=== PATIENT | male | born 1950 | race Caucasian/White ===

== ENCOUNTER → 2017-11-30 | Outpatient (CLI) | payer OTHER, BC | LOC: BHFA 13:00 | PROVIDERS: ATTEND Internal Medicine Cardiovascular Disease | DX: R06.09 Other forms of dyspnea (principal); I35.0 Nonrheumatic aortic (valve) stenosis ==

== ENCOUNTER 2017-12-27 08:30 | Inpatient (IN) | payer OTHER, BC ==
[2017-12-27] MEDS ORDERED: NS 1,000 ML IV ONE (08:33)
[2017-12-27] MEDS ORDERED: DIAZEPAM 5 MG TAB PO ONE (08:33)
[2017-12-27] MEDS ORDERED: FAMOTIDINE 20 MG TAB PO ONE (08:33)
[2017-12-27] MEDS ORDERED: diphenhydrAMINE 25 MG CAP PO ONE ×2 (08:33→09:08)
[2017-12-27] MEDS ORDERED: ASPIRIN EC 325 MG TAB PO ONE ×2 (08:33→09:09)
[2017-12-27] MEDS ORDERED: fentaNYL 100 MCG/2 ML INJ ONE ×2 (08:57→10:26)
[2017-12-27] MEDS ORDERED: LIDOCAINE 1% 300 MG/30 ML SDV ONE (08:57)
[2017-12-27] MEDS ORDERED: IOPAMIDOL (ISOVUE-370) 150 ML BTL IV ONE (08:57)
[2017-12-27] MEDS ORDERED: MIDAZOLAM 2 MG/2 ML VIAL ONE ×2 (08:57→10:27)
--- NOTE | 2017-12-27 08:59 | CPEKG ---
Heart Rate: 62 RR Interval: 968 P-R Interval: 184 QRSD Interval: 100 QT Interval: 400 QTC Interval: 407 P Patriot: 71 QRS Patriot: 58 T Wave Patriot: -2 EKG Severity - NORMAL ECG - EKG Impression: SINUS RHYTHM Electronically Signed By: Uri Lanier 27-Dec-2017 09:44:28
--- NOTE | 2017-12-27 09:04 | PDHPUP ---
History & Physical Update H&P update statement: This history and physical update is based on an assessment of the patient which was completed after admission or registration (within 24 hours), but prior to the surgery/procedure. H&P update: H&P reviewed & patient examined, no change in patient's condition since H&P completed
--- NOTE | 2017-12-27 09:04 | PDPROPOC ---
Sedation Plan of Care Sedation Plan of Care: vital signs stable, mental status noted, patient educated of risks, benefits, alternatives, patient can tolerate sedation ASA Classification: ASA 2 Planned drugs: fentanyl, midazolam Mallampati Score: Class 2 Mallampati Reference Image: Patient passed 3-3-2 rule?: Yes
[2017-12-27] MEDS ORDERED: FAMOTIDINE 20 MG TAB ONE (09:09)
[2017-12-27] MEDS ORDERED: DIAZEPAM 5 MG TAB ONE (09:09)
[2017-12-27 09:35] LABS: INR 0.99 (0.83-1.16); PROTIME(PATIENT) 13.3 SEC (12.0-15.0)
[2017-12-27 10:24] LABS: PLATELET COUNT 254 10^3/uL (150-400)
[2017-12-27] MEDS ORDERED: ATROPINE SULFATE 1 MG/10 ML SYR ONE (10:52)
[2017-12-27] MEDS ORDERED: OXYCODONE/APAP 5/325 TAB PO PRN (10:53)
[2017-12-27] MEDS ORDERED: ATROPINE SULFATE 1 MG/10 ML SYR IVP PRN (10:53)
[2017-12-27] MEDS ORDERED: ONDANSETRON 4 MG/2 ML VIAL IVP PRN (10:53)
[2017-12-27] MEDS ORDERED: NITROGLYCERIN 0.4 MG BTL SL PRN (10:53)
--- NOTE | 2017-12-27 11:00 | CPIP ---
[f rep st] INVASIVE CARDIAC PROCEDURE DATE OF PROCEDURE: 12/27/2017 PROCEDURE: Coronary angiography. INDICATION: Preoperative evaluation prior to AVR. ACCESS: Patient was prepped and draped in the sterile fashion. 1% lidocaine was used to anesthetize the right inguinal region. A 6-Panamanian introducer sheath was placed selectively in the right common femoral artery via modified Seldinger technique. CORONARY ANGIOGRAPHY: A 6-Panamanian JL4 was advanced to left main coronary artery and images obtained. The left main coronary artery trifurcated into LAD, ramus, and circumflex coronary arteries. The le ft main coronary artery appeared normal. The left anterior descending coronary artery gave rise to o ne prominent diagonal branch as well as one smaller diagonal branch. The left anterior descending co ronary artery had mild luminal irregularities in the mid vessel. There was no stenosis greater than 10%. The diagonal arteries were free of any significant disease. The ramus coronary artery was a sm all to moderate sized vessel. The ramus coronary artery appeared normal. The circumflex coronary ar antonio is a large vessel, but was nondominant. Circumflex coronary artery had a single discrete 25% st enosis in the mid vessel. A 6-Panamanian JR4 was advanced to the right coronary artery and images obtain ed. The right coronary artery is dominant. The right coronary artery appeared normal. LEFT VENTRICULOGRAPHY: Left ventriculography was not performed in an effort to spare contrast across a known problematic valve. COMPLICATIONS: None. CONCLUSIONS: 1. Mild coronary artery disease without flow limitation. 2. Plan is for medical management. /[id number]/MODL
[2017-12-27] MEDS ORDERED: LACTULOSE 20 GM/30 ML UDCUP PO PRN (16:22)
[2017-12-27] MEDS ORDERED: POLYETHYLENE GLYCOL 3350 17 GM PKT PO PRN (16:22)
[2017-12-27] MEDS ORDERED: MAGNESIUM HYDROXIDE 30 ML UDCUP PO PRN (16:22)
[2017-12-27] MEDS ORDERED: BISACODYL 10 MG SUPP PR PRN (16:22)
[2017-12-27] MEDS ORDERED: CHLORHEXIDINE GLUC HIBICLENS 118 ML BTL TP SCH (21:00)
[2017-12-27] MEDS ORDERED: NON-FORMULARY NEW DRUG (Loratadine [Claritin] 10 MG) PO SCH (21:00)
[2017-12-27] MEDS: SENNOSIDES/DOCUSATE SODIUM TAB PO SCH (21:29)
[2017-12-27] MEDS: CETIRIZINE 10 MG TAB PO SCH (21:30)
[2017-12-28] MEDS ORDERED: AMINOCAPROIC ACID 5 GM/20 ML VIAL IV ONE (06:00)
[2017-12-28] MEDS ORDERED: NOREPINEPHRINE BITARTRATE 16 MG in NS 250 ML IV ONE (06:00)
[2017-12-28] MEDS ORDERED: INSULIN REGULAR HUMAN 100 UNIT in NS 100 ML IV ONE (06:00)
[2017-12-28] MEDS ORDERED: CITRATE DEXTROSE SOLN 500 ML BAG MISC ONE ×2 (06:00)
[2017-12-28] MEDS ORDERED: SODIUM BICARBONATE 20 MEQ, LIDOCAINE 1% 10 ML in NORMOSOL-R 1,000 ML MISC ONE (06:00)
[2017-12-28] MEDS ORDERED: PHENYLEPHRINE HCL 50 MG in NS 250 ML IV ONE (06:00)
[2017-12-28] MEDS ORDERED: ceFAZolin 2 GM/SWFI 2 GM/20 ML SYR IVP ONE ×2 (06:00)
[2017-12-28] MEDS ORDERED: niCARdipine/NACL 200 ML IV SCH ×2 (06:00)
[2017-12-28] MEDS ORDERED: MUPIROCIN 2% 22 GM OINT NS ONE (06:00)
[2017-12-28] MEDS ORDERED: MANNITOL 25% 12.5 GM/50 ML VIAL IVP ONE (06:00)
[2017-12-28] MEDS ORDERED: PROTAMINE SULFATE 50 MG/5 ML VIAL IVP ONE ×2 (06:38→10:12)
[2017-12-28] MEDS ORDERED: ALBUMIN 5% 250 ML BOTTLE IV ONE (06:38)
[2017-12-28] MEDS ORDERED: CALCIUM CHLORIDE 1 GM/10 ML INJ ONE (06:39)
[2017-12-28] MEDS ORDERED: MILRINONE/DEXTROSE/100 ML BAG IV ONE (06:39)
[2017-12-28] MEDS ORDERED: NA BICARBONATE 50 MEQ/50 ML VIAL ONE (06:39)
[2017-12-28] MEDS ORDERED: LIDOCAINE 2% 100 MG/5 ML SYR ONE ×2 (06:40→07:11)
[2017-12-28] MEDS ORDERED: CITRATE DEXTROSE SOLN 500 ML BAG ONE (06:40)
[2017-12-28] MEDS ORDERED: HEPARIN 10,000 UNIT/10 ML MDV (1,000 UNIT/ML) ONE (06:40)
[2017-12-28] MEDS ORDERED: DOPamine/DEXTROSE/250 ML BAG IV ONE (06:40)
[2017-12-28] MEDS ORDERED: AMIODARONE HCL 150 MG/3 ML VIAL ONE (06:41)
[2017-12-28] MEDS ORDERED: ADENOSINE 6 MG/2 ML VIAL ONE (06:41)
[2017-12-28] MEDS ORDERED: methylPREDNISolone SOD SUCC 1 GM/8 ML VIAL ONE (06:41)
[2017-12-28] MEDS ORDERED: ceFAZolin 1 GM VIAL ONE (06:41)
[2017-12-28] MEDS ORDERED: niCARdipine/NACL/200 ML BAG IV ONE (06:41)
[2017-12-28] MEDS ORDERED: MAGNESIUM SULFATE 1 GM/2 ML VIAL ONE (06:41)
--- NOTE | 2017-12-28 06:54 | PDHPUP ---
History & Physical Update H&P update statement: This history and physical update is based on an assessment of the patient which was completed after admission or registration (within 24 hours), but prior to the surgery/procedure. H&P update: H&P reviewed & patient examined, changes noted H&P changes: Preop imaging neg for obstructive CAD, enlarged aorta or prohibitive neurologic risk. H/H , Cr 1.0, A1c 6.2%, A+ no antibodies.
[2017-12-28] MEDS ORDERED: MIDAZOLAM 2 MG/2 ML VIAL IVP ONE (06:55)
--- NOTE | 2017-12-28 06:58 | PDANEPAE ---
ANE History of Present Illness bicuspid Ao valve, s/f AVR ANE Past Medical History - Cardiovascular History Hx Hypertension: Yes Hx Arrhythmias: No Hx Chest Pain: No Hx Coronary Artery / Peripheral Vascular Disease: No Hx CHF / Valvular Disease: Yes Hx Palpitations: No Cardiovascular History Comment: htn. bicupsid aortic valve. nonrheumatic aortic valve stenosis. dr cruz is side stitcher - Pulmonary History Hx COPD: No Hx Asthma/Reactive Airway Disease: No Hx Recent Upper Respiratory Infection: No Hx Oxygen in Use at Home: No Hx Sleep Apnea: No Sleep Apnea Screening Result - Last Documented: Positive Pulmonary History Comment: brendan triggers only. slight cough from medications - Neurologic History Hx Cerebrovascular Accident: No Hx Seizures: No Hx Dementia: No - Endocrine History Hx Diabetes: No Endocrine History Comment: pre-diabetic d/t weight - Renal History Hx Renal Disorders: Yes Renal History Comment: frequency - Liver History Hx Hepatic Disorders: No - Neurological & Psychiatric Hx Hx Neurological and Psychiatric Disorders: No - Cancer History Cancer History Comment: hx of skin ca - Congenital Disorder History Hx Congenital Disorders: No - GI History Hx Gastrointestinal Disorders: Yes Gastrointestinal History Comment: hx of egd's and colonoscopies. reflux- on omeprazole - Other Health History Other Health History: wears glasses. bilateral hearing aides - Chronic Pain History Chronic Pain: No (occ right shoulder/ arm pain) - Surgical History Prior Surgeries: at 18 yo luis f and appy. [place]oscop[place] [facility] [place] [place]09 with [facility] at [facility] ANE Review of Systems Review of Systems: - Exercise capacity Exercise capacity: >=4 METS ANE Patient History - Allergies Allergies/Adverse Reactions: codeine Allergy (Mild, Verified 12/28/17 05:11) Vomiting - Home Medications Home medications: home medication list seen and reviewed Home Medications: Aspirin [Aspirin 81mg (*)] 81 mg PO DAILY 12/12/17 [Last Taken Unknown] Atorvastatin Calcium [Lipitor 20 mg (*)] 20 mg PO HS 12/12/17 [Last Taken Unknown] Chlorthalidone [Chlorthalidone 25 mg (*)] 25 mg PO DAILY 12/12/17 [Last Taken Unknown] Cholecalciferol Vit D3 [Vitamin D3 (*)] 1,000 units PO DAILY 12/12/17 [Last Taken Unknown] Fluticasone Nasal [Flonase Nasal [place] (RX)] 1 sprays NASAL DAILY 12/12/17 [ Last Taken Unknown] Lisinopril [Zestril 20 mg (*)] 20 mg PO HS 12/12/17 [Last Taken Unknown] Loratadine [Claritin] 10 mg PO HS 12/12/17 [Last Taken Unknown] Omeprazole 20 mg PO HS 12/12/17 [Last Taken Unknown] - NPO status NPO Status: no food or drink >8 hours NPO Since - Liquids (Date): 12/28/17 NPO Since - Liquids (Time): 00:00 NPO Since - Solids (Date): 12/28/17 NPO Since - Solids (Time): 00:00 - Anes Hx Anes Hx: no prior problems - Smoking Hx Smoking Status: Former smoker - Alcohol Use Alcohol Use: Rarely - Family Anes Hx Family Anes Hx: none Family Hx Anesthesia Complications: none ANE Labs/Vital Signs - Labs Result Diagrams: 12/27/17 09:10 12/27/17 09:10 - Vital Signs Blood Pressure: 149/63 Heart Rate: 68 Respiratory Rate: 16 O2 Sat (%): 94 Height: 178 cm Weight: 99.6 kg ANE Physical Exam - Airway Neck exam: FROM Mallampati Score: Class 2 Mouth exam: normal dental/mouth exam - Pulmonary Pulmonary: no respiratory distress - Cardiovascular Cardiovascular: regular rate and rhythym - ASA Status ASA Status: II ANE Anesthesia Plan Anesthesia Plan: general endotracheal anesthesia Lines/Monitors: arterial line, central line
[2017-12-28] MEDS ORDERED: DEXMEDETOMIDINE HCL 400 MCG in NS 100 ML IV SCH (07:00)
[2017-12-28] MEDS ORDERED: MIDAZOLAM 2 MG/2 ML VIAL ONE ×3 (07:07→07:09)
[2017-12-28] MEDS ORDERED: REMIFENTANIL HCL 1 MG VIAL ONE (07:09)
[2017-12-28] MEDS ORDERED: DEXAMETHASONE 4 MG/ML VIAL ONE ×2 (07:09→07:10)
[2017-12-28] MEDS ORDERED: fentaNYL 250 MCG/5 ML INJ ONE (07:09)
[2017-12-28] MEDS ORDERED: PROPOFOL/EMULSION 500 MG/50 ML BOTTLE IV ONE (07:09)
[2017-12-28] MEDS ORDERED: PHENYLEPHRINE HCL 100 MCG/ML SYR ONE (07:10)
[2017-12-28] MEDS ORDERED: epHEDrine SULFATE 10 MG/ML SYR ONE (07:10)
[2017-12-28] MEDS ORDERED: ROCURONIUM 100 MG/10 ML VIAL ONE (07:10)
[2017-12-28] MEDS ORDERED: PROPOFOL 200 MG/20 ML VIAL ONE (09:31)
[2017-12-28] MEDS ORDERED: MAGNESIUM SULF 2 GM/WATER 50 ML BAG IV ONE (09:59)
[2017-12-28] MEDS ORDERED: fentaNYL 100 MCG/2 ML INJ ONE ×2 (10:31→10:59)
[2017-12-28] MEDS ORDERED: POTASSIUM Cl (KCl) 50 ML IV PRN (11:14)
[2017-12-28] MEDS ORDERED: PANTOPRAZOLE SODIUM 40 MG VIAL IVP ONE ×2 (11:14→14:15)
[2017-12-28] MEDS ORDERED: MAGNESIUM SULF 2 GM/WATER 50 ML IV ONE (11:14)
[2017-12-28] MEDS ORDERED: ALBUMIN 5% 250 ML IV PRN (11:14)
[2017-12-28] MEDS ORDERED: ONDANSETRON DISINTEGRATING 4 MG TAB PO PRN (11:14)
[2017-12-28] MEDS ORDERED: CEPACOL LOZENGE PO PRN (11:14)
[2017-12-28] MEDS ORDERED: ACETAMINOPHEN 650 MG SUPP PR PRN (11:14)
[2017-12-28] MEDS ORDERED: SODIUM CL NASAL 45 ML BTL EACHNARE PRN (11:14)
[2017-12-28] MEDS ORDERED: METOCLOPRAMIDE 10 MG/2 ML VIAL IVP PRN (11:14)
[2017-12-28] MEDS ORDERED: fentaNYL 100 MCG/2 ML INJ IVP PRN (11:14)
[2017-12-28] MEDS ORDERED: D50W 25 GM/50 ML SYR IVP PRN (11:14)
[2017-12-28] MEDS ORDERED: MEPERIDINE 25 MG/0.5 ML AMP IVP PRN (11:14)
[2017-12-28] MEDS ORDERED: ACETAMINOPHEN 325 MG TAB PO PRN (11:14)
[2017-12-28] MEDS ORDERED: NS 1,000 ML IV SCH (11:15)
[2017-12-28] MEDS ORDERED: ONDANSETRON 4 MG/2 ML VIAL IVP PRN (11:23)
[2017-12-28] MEDS ORDERED: INSULIN REGULAR HUMAN 100 UNIT in NS 100 ML IV SCH (11:30)
--- NOTE | 2017-12-28 12:27 | GOP ---
[f rep st] OPERATIVE REPORT DATE OF OPERATION: 12/28/2017 SURGEON: Jose Valles DO QUALITY SYSTEMS TECHNICIAN: Casey. ANESTHESIOLOGIST: Reese. PREOPERATIVE DIAGNOSIS: Aortic stenosis. POSTOPERATIVE DIAGNOSIS: Aortic stenosis. PROCEDURE PERFORMED: Minimally invasive aortic valve replacement with a #23 Magna bioprosthesis. FINDINGS: Patient was noted to have a bicuspid aortic valve with critical aortic stenosis, symptomat ic. DESCRIPTION OF PROCEDURE: He was consented for surgery, brought to the operating room intubated, and monitoring lines were placed. He was prepped and draped in sterile classical manner. Partial paulson otomy was performed at the 3rd intercostal space. It was T'd off. A retractor was placed. He was h eparinized with cannula in the aorta and right atrium. Cardiopulmonary bypass was begun. Cardiopleg ic arrest was obtained with antegrade cardioplegia and intermittent direct coronary perfusion. A heavily calcified bileaflet valve was excised. The anulus was debrided. The LV chamber was irriga brandi. CO2 was infused. A PA vent was placed. The patient was sized for a 23 magna bioprosthesis, wh ich was sutured in place with interrupted 2-0 Tycron pledgeted mattress sutures utilizing Cor-Knots. Aortotomy was closed in a 2-layer fashion. Patient was placed in Trendelenburg. The cross-clamp wa s removed with suction on the ascending aortic vent and PA vent. Two pacing wires were placed on the LV and brought through a separate stab wound incision. He was then easily weaned from bypass. The heparin was reversed with protamine. The cannulae were removed and oversewn. One Kb drain was pl aced in the pericardium. The chest was reapproximated. The skin was closed. Patient was returned t o the recovery in stable condition. /[id number]/MODL
[2017-12-28] MEDS: KETOROLAC 15 MG/1 ML SDV IVP SCH ×2 (12:49→17:54)
[2017-12-28] MEDS: ceFAZolin 2 GM/SWFI 2 GM/20 ML SYR IVP SCH ×2 (13:26→21:08)
--- NOTE | 2017-12-28 13:32 | GCON ---
[f rep st] CONSULTATION TOUCH UP CARVER CONSULTATION REASON FOR ADMISSION: He is examined postoperatively after receiving aortic valve replacement. HISTORY OF PRESENT ILLNESS: Mr. Meneses is a 67-year-old white male with a past medical history of bicuspid aortic valve, hypertension, hypercholesterolemia, and gastroesophageal reflux disease. He i s, again, examined postoperatively after receiving aortic valve replacement. Discussed with the amanda ent. Overall he states he feels somewhat better. His pain is reasonably well tolerated, though he i s somewhat drowsy. He denies any cough or production of sputum. There is no fever or night sweats. REVIEW OF SYSTEMS: A 10-point review of systems was performed and is negative except for what is lis brandi in HPI. PAST MEDICAL HISTORY: Significant for hypertension, bicuspid aortic valve. Dyspnea upon exertion. Hypertension, hypercholesterolemia, gastroesophageal reflux disease. PAST SURGICAL HISTORY: He had shoulder surgery, gallbladder, and appendix. ALLERGIES: No known allergies to medications. SOCIAL HISTORY: Previous heavy smoker, quit at age 33. Infrequent alcohol use. He is , has excellent family support. FAMILY HISTORY: Noncontributory. PHYSICAL EXAM: VITAL SIGNS: Blood pressure is 149/63, pulse 68, respirations 16, temperature 36.4, oxygen saturation 94% on room air. GENERAL: He is a well-developed, well-nourished, 67-year-old whi te male who is resting comfortably, with mild pain. HEENT: Eyes PERRLA, EOMI. Throat shows no eryt rufino or tonsillar hypertrophy. NECK: Supple. There is no cervical adenopathy. HEART: Regular rat e and rhythm, without murmurs, rubs, or gallops. LUNGS: Diminished breath sounds, but no wheeze. ABDOMEN: Soft, nontender. Bowel sounds are present in all 4 quadrants. EXTREMITIES: No clubbing, cyanosis, or edema. LABORATORY DATA: White count 7.7, hemoglobin 15, hematocrit 45, platelet count 254. Sodium 145, pot assium 3.9, chloride 102, CO2 28, BUN 17, creatinine 1, glucose is 101. CT scan of the chest reveals dense aortic valvular calcification, coronary arthrosclerosis, and benign pulmonary nodules. IMPRESSION: 1. Severe aortic stenosis. 2. Status post aortic valve replacement. 3. Hypertension. 4. Dyspnea upon exertion. 5. Gastroesophageal reflux disease. RECOMMENDATIONS: 1. Adequate pain control. 2. DVT and PE prophylaxis. Holding anticoagulation for now. 3. Stress ulcer prophylaxis. 4. Aggressive blood sugar control. 5. Early ambulation. 6. PT and OT. /[id number]/MODL
[2017-12-28] MEDS ORDERED: ceFAZolin 2 GM/DEXTROSE 100 ML IV SCH (14:00)
[2017-12-28] MEDS ORDERED: PANTOPRAZOLE SODIUM 40 MG VIAL ONE (14:08)
--- NOTE | 2017-12-28 16:27 | PDMN ---
Medical Necessity Medical necessity: IP surgery per [facility] cpt [id number] AVR
--- NOTE | 2017-12-28 18:51 | POSTANESTH ---
Post Anesthetic Evaluation Cardiovascular Status: Normal, Stable Respiratory Status: Normal, Stable Level of Consciousness/Mental Status: Can Participate in Eval Pain Control: Adequate, Prn Tx Ordered Nausea/Vomiting Control: Adequate, Prn Tx Ordered Complications Possibly Related to Anesthesia: None Noted
[2017-12-28] MEDS: CETIRIZINE 10 MG TAB PO SCH (19:45)
[2017-12-28] MEDS: MUPIROCIN 2% 22 GM OINT NS SCH (19:46)
[2017-12-28] MEDS: HYDROCODONE/APAP 5/325 TAB PO PRN (22:18)
[2017-12-28] MEDS: SENNOSIDES/DOCUSATE SODIUM TAB PO SCH (23:58)
[2017-12-29] MEDS: KETOROLAC 15 MG/1 ML SDV IVP SCH ×4 (00:08→17:17)
[2017-12-29] MEDS: ceFAZolin 2 GM/SWFI 2 GM/20 ML SYR IVP SCH ×3 (05:52→22:06)
[2017-12-29] MEDS: HEPARIN 5,000 UNIT/0.5 ML SYR SC SCH ×3 (05:53→20:21)
[2017-12-29 06:01] LABS: PLATELET COUNT 109 10^3/uL (150-400)
--- NOTE | 2017-12-29 06:31 | SOAPPROG ---
SOAP Progress Note Assessment/Plan: Assessment: POD#1 MICS AVR #23 Magna bioprosthesis via inverse T upper sternotomy BAV with sx - s/p tissue AVR via minimally invasive approach. Extubated in the OR. Stable early postop hemodynamics without vasoactive support, tachyarrhythmias or backup pacing. Adequately diuresing modest volume overload. Antithrombotic prophylaxis with ASA alone pending stability of rhythm. AF prophylaxis with BB as tolerated. Acute expected blood loss anemia - Stable. No transfusions required. VTE prophylaxis with SQ hep. Prediabetes - Preop A1c of 6.2%. Postop hyperglycemia managed with insulin gtt. Transition to SSI in progress. Plan: Routine POD#1 orders re wires, lines, drains, orals and mobility. Tx to PCU. 12/29/17 06:28 Subjective: Feels great. Satisfactory analgesia. Walked one lap earlier this am with relative ease. Good appetite. No concerns. Objective: Vital Signs Temp Pulse Resp BP Pulse Ox 36.7 C 58 L 20 113/54 L 97 12/28/17 19:20 12/29/17 05:00 12/29/17 05:00 12/29/17 05:00 12/29/17 05:00 Laboratory Results 12/29/17 05:40 12/28/17 12/29/17 12/30/17 05:59 05:59 05:59 Intake Total 950 1900 Output Total 1400 Balance 950 500 PT 13.3 SEC (12.0-15.0) 12/27/17 09:10 INR 0.99 (0.83-1.16) 12/27/17 09:10 Physical Exam - Physical Exam General Appearance: alert, no apparent distress Respiratory: lungs clear (grossly), other (jill to bulb suction) Cardiac/Chest: regular rate, rhythm, other (Sternum grossly stable. Sternotomy CDI. V wires intact.) Abdomen: non-tender, soft Skin: warm/dry Extremities: swelling (trace) ICD10 Worksheet Patient Problems: Problems Problem Status Onset Carotid atherosclerosis Acute Coronary atherosclerosis Acute S/P aortic valve replacement with bioprosthetic valve Acute ~12/28/17 Calcific aortic stenosis of bicuspid valve Chronic Prediabetes Chronic
[2017-12-29] MEDS ORDERED: traMADol 50 MG TAB PO PRN (08:03)
[2017-12-29] MEDS: PANTOPRAZOLE SODIUM 40 MG TAB PO SCH (09:16)
[2017-12-29] MEDS: SODIUM CL NASAL 45 ML BTL EACHNARE SCH ×2 (09:16→20:34)
[2017-12-29] MEDS: ASPIRIN 81 MG CHEWABLE TAB PO SCH (09:16)
[2017-12-29] MEDS: MUPIROCIN 2% 22 GM OINT NS SCH ×2 (09:17→20:33)
[2017-12-29] MEDS: FLUTICASONE NASAL 120 SPRAYS/16 GM MDI EACHNARE SCH (09:33)
--- NOTE | 2017-12-29 09:46 | PDINTPN ---
Cattle Examiner Progress Note Assessment/Plan: Assessment: * Status post aortic valve replacement * Respiratory-stable on minimal oxygen. * Pain-well controlled * Pre diabetes-blood sugar stable Plan: Continue present care PT/OT Ambulation Continue pain control Subjective: Sitting up in chair. Comfortable. Pain is well tolerated. Objective: Vital Signs Temp Pulse Resp BP Pulse Ox 36.9 C 71 22 H 100/57 L 96 12/29/17 08:00 12/29/17 08:00 12/29/17 08:00 12/29/17 08:00 12/29/17 08:00 Laboratory Results 12/29/17 05:40 12/29/17 05:40 12/28/17 12/29/17 12/30/17 05:59 05:59 05:59 Intake Total 950 2200 240 Output Total 1400 Balance 950 800 240 PT 13.3 SEC (12.0-15.0) 12/27/17 09:10 INR 0.99 (0.83-1.16) 12/27/17 09:10 - Time Spent With Patient Time Spent With Patient: 25 min of time spent with patient, over 1/2 involved with coordination of care or counseling Physical Exam - Physical Exam General Appearance: WD/WN, alert, no apparent distress EENT: PERRL/EOMI, normal ENT inspection Neck: non-tender, full range of motion, supple, normal inspection Respiratory: chest non-tender, lungs clear, normal breath sounds Cardiac/Chest: normal peripheral pulses, regular rate, rhythm Abdomen: normal bowel sounds, non-tender, soft Male Genitalia: deferred Rectal: deferred Skin: normal color, warm/dry Extremities: normal range of motion, non-tender, normal inspection, normal capillary refill Neuro/Psych: no motor/sensory deficits, alert, normal mood/affect, oriented x 3 ICD10 Worksheet Patient Problems: Problems Problem Status Onset Carotid atherosclerosis Acute Coronary atherosclerosis Acute S/P aortic valve replacement with bioprosthetic valve Acute ~12/28/17 Calcific aortic stenosis of bicuspid valve Chronic Prediabetes Chronic
[2017-12-29] MEDS ORDERED: INSULIN LISPRO 100 UNIT/ML SC SCH (12:00)
[2017-12-29] MEDS: CETIRIZINE 10 MG TAB PO SCH (20:22)
[2017-12-29] MEDS: SENNOSIDES/DOCUSATE SODIUM TAB PO SCH (20:22)
--- NOTE | 2017-12-30 00:59 | CPEKG ---
Heart Rate: 74 RR Interval: 811 QRSD Interval: 100 QT Interval: 364 QTC Interval: 404 P [place]: 55 QRS [place]: 50 T Wave [place]: -13 EKG Severity - ABNORMAL ECG - EKG Impression: AV DISSOCIATION EKG Impression: VENTRICULAR BIGEMINY EKG Impression: ABERRANT COMPLEX, POSSIBLY SUPRAVENTRICULAR EKG Impression: BORDERLINE T ABNORMALITIES, INFERIOR LEADS Electronically Signed By: Uri Lanier 30-Dec-2017 13:06:41
[2017-12-30] MEDS: HYDROCODONE/APAP 5/325 TAB PO PRN (04:24)
[2017-12-30] MEDS: HEPARIN 5,000 UNIT/0.5 ML SYR SC SCH ×3 (06:18→21:57)
--- NOTE | 2017-12-30 06:56 | SOAPPROG ---
SOAP Progress Note Assessment/Plan: Assessment: POD#2 MICS AVR #23 Magna bioprosthesis via inverse T upper sternotomy BAV with sx - s/p tissue AVR via minimally invasive approach. Extubated in the OR. Stable early postop hemodynamics without vasoactive support or tachyarrhythmias. Chest tube and TCPW out. Adequately diuresing modest volume overload. Antithrombotic prophylaxis with ASA alone pending stability of rhythm. AF prophylaxis with BB as tolerated. Postoperative high degree AVB - Development of CHB early this am. Well tolerated. EP cards consulted. Possible PPM later today. Acute expected blood loss anemia - Stable. No transfusions required. VTE prophylaxis with SQ hep. Prediabetes - Preop A1c of 6.2%. Postop hyperglycemia managed with insulin gtt. Transition to SSI in progress. Plan: NPO for possible PPM. 12/30/17 06:54 Subjective: Doing ok. Inc incisional discomfort off Toradol. Unaware of rhythm. No dizziness. Objective: Vital Signs Temp Pulse Resp BP Pulse Ox 37.7 C 72 16 108/65 94 12/30/17 04:00 12/30/17 04:00 12/30/17 04:00 12/30/17 04:00 12/30/17 04:00 Laboratory Results 12/29/17 05:40 12/30/17 03:20 12/29/17 12/30/17 12/31/17 05:59 05:59 05:59 Intake Total 2200 1160 Output Total 1400 475 Balance 800 685 PT 13.3 SEC (12.0-15.0) 12/27/17 09:10 INR 0.99 (0.83-1.16) 12/27/17 09:10 Onset of CHB early this am. No apparent sx. No hypotension. No electrolyte imbalance. Almost off O2. Positive fluid balance. +5 kg overall. - Pending Discharge Pending Discharge Within 48 Hours: Yes Pending Discharge Date: 01/01/18 Pending Discharge Time: 11:00 Physical Exam - Physical Exam General Appearance: alert, no apparent distress Respiratory: lungs clear (grossly) Cardiac/Chest: other (Irreg HR. Sternum grossly stable. Sternotomy CDI.) Abdomen: non-tender, soft Skin: warm/dry Extremities: swelling (1+ dependent) ICD10 Worksheet Patient Problems: Problems Problem Status Onset Carotid atherosclerosis Acute Coronary atherosclerosis Acute Postoperative complete heart block Acute S/P aortic valve replacement with bioprosthetic valve Acute ~12/28/17 Calcific aortic stenosis of bicuspid valve Chronic Prediabetes Chronic
[2017-12-30] MEDS: PANTOPRAZOLE SODIUM 40 MG TAB PO SCH (08:08)
[2017-12-30] MEDS: ASPIRIN 81 MG CHEWABLE TAB PO SCH (08:09)
[2017-12-30] MEDS: SENNOSIDES/DOCUSATE SODIUM TAB PO SCH ×2 (08:09→21:56)
[2017-12-30] MEDS: SODIUM CL NASAL 45 ML BTL EACHNARE SCH (08:10)
[2017-12-30] MEDS: MUPIROCIN 2% 22 GM OINT NS SCH (08:10)
[2017-12-30] MEDS: FLUTICASONE NASAL 120 SPRAYS/16 GM MDI EACHNARE SCH (08:10)
[2017-12-30] MEDS ORDERED: FUROSEMIDE 20 MG/2 ML VIAL IVP ONE (09:00)
[2017-12-30] MEDS ORDERED: POTASSIUM CL 10 MEQ TAB PO ONE (09:00)
[2017-12-30] MEDS: IBUPROFEN 600 MG TAB PO PRN (13:13)
--- NOTE | 2017-12-30 15:53 | ASMTCASEMG ---
Living Arrangements What is your living Answers: With Spouse arrangement? Who do you live with? Type Of Residence What kind of residence do Answers: House you live in? Discharge Plan Comments Coordination Status Comments Notes: Pt is a 67 y/o man admitted for heart surgery performed by Dr. Valles. Pt will be NPO for a possible PPM. Therapies have been working with pt and has cleared pt to be independent. CM available for changes. Plan: Independent Date Signed: 12/30/2017 03:52 PM Electronically Signed By:JOSUE Bell
[2017-12-30] MEDS: CETIRIZINE 10 MG TAB PO SCH (21:57)
[2017-12-31] MEDS: HEPARIN 5,000 UNIT/0.5 ML SYR SC SCH (06:26)
--- NOTE | 2017-12-31 07:29 | SOAPPROG ---
SOAP Progress Note Assessment/Plan: POD#3: MICS AVR #23 Magna bioprosthesis via inverse T upper sternotomy BAV with sx - s/p tissue AVR via minimally invasive approach. Extubated in the OR. Antithrombotic prophylaxis with ASA alone pending stability of rhythm. AF prophylaxis with BB as tolerated. Postoperative high degree AVB - Acute expected blood loss anemia - Stable. No transfusions required. VTE prophylaxis with SQ hep. Prediabetes - Preop A1c of 6.2%. Postop hyperglycemia managed with insulin gtt. Transition to SSI in progress. Subjective: No complaints. Happy to be discharged today. Objective: Vital Signs Temp Pulse Resp BP Pulse Ox 37.3 C 73 20 122/70 H 93 12/31/17 04:00 12/31/17 07:11 12/31/17 07:11 12/31/17 04:00 12/31/17 07:11 Laboratory Results 12/29/17 05:40 12/30/17 03:20 12/30/17 12/31/17 01/01/18 05:59 05:59 05:59 Intake Total 1160 1050 Output Total 475 850 Balance 685 200 PT 13.3 SEC (12.0-15.0) 12/27/17 09:10 INR 0.99 (0.83-1.16) 12/27/17 09:10 Physical Exam - Physical Exam General Appearance: WD/WN, alert, no apparent distress EENT: No scleral icterus (R), No scleral icterus (L) Neck: normal inspection Respiratory: No normal breath sounds Cardiac/Chest: regular rate, rhythm Abdomen: non-tender, soft, No distended Skin: normal color, warm/dry Extremities: No pedal edema Neuro/Psych: no motor/sensory deficits, alert, normal mood/affect, oriented x 3 ICD10 Worksheet Patient Problems: Problems Problem Status Onset Carotid atherosclerosis Acute Coronary atherosclerosis Acute Postoperative complete heart block Acute S/P aortic valve replacement with bioprosthetic valve Acute ~12/28/17 Calcific aortic stenosis of bicuspid valve Chronic Prediabetes Chronic
[2017-12-31 07:50] VITALS: BP 136/80
[2017-12-31] MEDS ORDERED: CHOLECALCIFEROL VIT D3 1,000 UNITS TAB PO SCH (09:00)
[2017-12-31] MEDS: PANTOPRAZOLE SODIUM 40 MG TAB PO SCH (09:01)
[2017-12-31] MEDS: ASPIRIN 81 MG CHEWABLE TAB PO SCH (09:01)
[2017-12-31] MEDS: IBUPROFEN 600 MG TAB PO PRN ×2 (09:05→14:22)
[2017-12-31] MEDS: SENNOSIDES/DOCUSATE SODIUM TAB PO SCH (09:05)
[2017-12-31] MEDS: FLUTICASONE NASAL 120 SPRAYS/16 GM MDI EACHNARE SCH (09:05)
--- NOTE | 2017-12-31 16:26 | ASMTLACE ---
LACE Length of stay for Answers: 4-6 days current admission Acuity / Level of Answers: Yes Care: Did the patient have an inpatient admission? Comorbidities - select Answers: Congestive heart failure all that apply Other Notes: HTN # of Emergency department Answers: 0 visits in the last 6 months Score: 10 Date Signed: 12/31/2017 02:11 PM Electronically Signed By:Jen Brandon RN
--- NOTE | 2017-12-31 17:15 | PDDCSUM ---
Discharge Summary Discharge Summary: ADMISSION DATE: 12/27/17 DISCHARGE DATE: 12/31/17 ADMISSION DIAGNOSES: 1. Severe aortic stenosis 2. Bicuspid aortic valve DISCHARGE DIAGNOSES: 1. Severe aortic stenosis 2. Bicuspid aortic valve 3. Acute blood loss anemia 4. Postoperative AV block PROCEDURES 12/28/17, Jose Valles: 1. MICS AVR with #23 Magna bioprosthesis HOSPITAL COURSE BY PROBLEM LIST 1. Severe with bicuspid AV - stable s/p AVR with bioprosthesis. 2. Acute blood loss anemia - stable without the need for transfusions. 3. Postoperative AV block - resolved. Beta-vel avoided. CONDITION Good DISPOSITION Home, self-care ACTIVITY Pt was instructed on sternal precautions, activity limitations, and which problems to call [facility] with. Please see Discharge Plan in chart for specifics. DISCHARGE MEDICATIONS Continue: Aspirin [Aspirin 81mg (*)] 81 mg PO DAILY Atorvastatin Calcium [Lipitor 20 mg (*)] 20 mg PO HS Chlorthalidone [Chlorthalidone 25 mg (*)] 25 mg PO DAILY Cholecalciferol Vit D3 [Vitamin D3 (*)] 1,000 units PO DAILY Fluticasone Nasal [Flonase Nasal [place]] 1 sprays NASAL DAILY Loratadine [Claritin] 10 mg PO HS Omeprazole 20 mg PO HS New: Acetaminophen [Tylenol 325mg (*)] 325 - 650 mg PO Q4HRS PRN Hydrocodone/APAP 5/325 [[place] 5/325 (*)] 1 - 2 tab PO Q4HRS PRN Ibuprofen [Motrin (*)] 600 mg PO QIDMEAL PRN Stop: Lisinopril PENDING STUDIES/LABS 1. CXR prior to surgical follow-up FOLLOW-UP 1. Jose Valles, 01/10/18, 9:15 AM
[2017-12-31] MEDS ORDERED: ATORVASTATIN CALCIUM 20 MG TAB PO SCH (21:00)
--- NOTE | 2018-01-04 13:41 | ASDISCHSUM ---
Discharge Information Plan Status:Home with No Needs Medically Cleared to Leave:12/31/2017 Discharge Date:12/31/2017 CM D/C Disposition:Home, Routine, Self-Care ADT D/C Disposition:Home, Routine, Self-Care Projected Discharge Date:12/31/2017 Transportation at D/C:Family Discharge Delay Reason: Follow-Up Date:12/31/2017 Discharge Slot: Final Diagnosis: Placement Information Patient Contact Information Contact Name:GARRY Relationship: Address:[address] City:[place] Alternate Phone: [facility]/Zip Code:[place] [address] Email: Financial Information Financial Class:Medicare Primary Plan Desc:MEDICARE INPATIENT Primary Plan Number:[id number] Secondary Plan Desc:911 View [facility] Secondary Plan Number:[id number] Assessment Information LACE LACE Length of stay for Answers: 4-6 days current admission Acuity / Level of Answers: Yes Care: Did the patient have an inpatient admission? Comorbidities - select Answers: Congestive heart failure all that apply Other Notes: HTN # of Emergency department Answers: 0 visits in the last 6 months Score: 10 Date Signed: 12/31/2017 02:11 PM Electronically Signed By:Jen Brandon RN [facility] Initial CM Assessment Living Arrangements What is your living Answers: With Spouse arrangement? Who do you live with? Type Of Residence What kind of residence do Answers: House you live in? Discharge Plan Comments Coordination Status Comments Notes: Pt is a 67 y/o man admitted for heart surgery performed by Dr. Valles. Pt will be NPO for a possible PPM. Therapies have been working with pt and has cleared pt to be independent. CM available for changes. Plan: Independent Date Signed: 12/30/2017 03:52 PM Electronically Signed By:JOSUE Bell Case Management Discharge Plan Note Case Management Discharge Discharge Order Complete? Answers: Yes Patient to Obtain Answers: via Family Medications Transportation Arranged Answers: Family/Friends Family Notified Answers: Yes Notes: in room Discharge Comments Notes: 12/31/2017 Case Management Note Pt to d/c independent with family support. His will transport home. IM signed. No further case management needs identified. Date Signed: 12/31/2017 02:13 PM Electronically Signed By:Jen Brandon RN Intervention Information Intervention Type:*IM-Signed Date of Service:12/31/2017 02:10 PM Patient Type:Inpatient Staff Member:SWETHA Brandon, Jen Hours: Discipline: Severity: Comment:
== END 2017-12-31 14:52 | disposition home or self-care (01) | DRG 217 ==
LOC: FCATH 08:30 → F2W 10:53 → F2N 12-28 07:15 → F2W 12-29 10:00
PROVIDERS: ADMIT Thoracic Surgery (Cardiothoracic Vascular Surgery); ATTEND Thoracic Surgery (Cardiothoracic Vascular Surgery)
PROC: B2111ZZ Fluoroscopy of Multiple Coronary Arteries using Low Osmolar Contrast (ICD-10-PCS; 2017-12-27)
PROC: B2151ZZ Fluoroscopy of Left Heart using Low Osmolar Contrast (ICD-10-PCS; 2017-12-27)
PROC: 02RF08Z Replacement of Aortic Valve with Zooplastic Tissue, Open Approach (ICD-10-PCS; principal; 2017-12-28 07:15)
PROC: 5A1221Z Performance of Cardiac Output, Continuous (ICD-10-PCS; principal; 2017-12-28 07:15)
DX: Q23.1 Congenital insufficiency of aortic valve (principal); D62 Acute posthemorrhagic anemia; I44.39 Other atrioventricular block; E66.9 Obesity, unspecified; I10 Essential (primary) hypertension; E78.00 Pure hypercholesterolemia, unspecified; K21.9 Gastro-esophageal reflux disease without esophagitis; R73.03 Prediabetes
CPT/HCPCS: 82947-QW; 97162-GP; 97166-GO; 97530-GO; 97535-GO; G8978-GP-CH; G8979-GP-CH; G8980-GP-CH; G8987-GO-CI; G8988-GO-CH; G8989-GO-CH; J0153; J0282; J0461; J0690; J1100; J1265; J1644; J1815; J1885; J1940; J2001; J2150; J2250; J2260; J2370; J2704; J2720; J2930; J3010; J3475; J3480; J7060; P9041; Q9967

== ENCOUNTER → 2018-01-09 | Outpatient (CLI) | payer OTHER, BC | LOC: FIMAGING 10:20 | PROVIDERS: ATTEND Thoracic Surgery (Cardiothoracic Vascular Surgery) | DX: Z09 Encounter for follow-up examination after completed treatment for conditions other than malignant neoplasm (principal); Z95.2 Presence of prosthetic heart valve ==

== ENCOUNTER 2018-02-14 07:53 | Inpatient (IN) | payer OTHER, BC ==
[2018-02-14] MEDS ORDERED: LIDOCAINE 1% 5 ML SDV ID PRN (08:23)
[2018-02-14] MEDS ORDERED: ceFAZolin 2 GM/DEXTROSE 100 ML IV ONE (08:23)
[2018-02-14] MEDS ORDERED: LR 1,000 ML IV ONE (08:23)
--- NOTE | 2018-02-14 09:05 | PDGENHP ---
History and Physical - Chief Complaint sternal wound drainage/erythema/pain - History of Present Illness 67M with h/o AVR with #23 Magna bioprosthesis on 12/28/17 with 10 day c/o sternal wound swelling, erythema, and pain. Pt with onset of purulent drainage and seen at [facility] on 01/10 where superior pole of wound was opened and packed. Pt was started on Keflex and instructed to contact us if symptoms worsen. Pt here today for sternal wound debridement and hardware removal as symptoms did not resolve and he continues to c/o chest pain lateral to his sternotomy as well as purulent sternal wound drainage and erythema. Pt denies weakness, fevers, chills, nausea, or vomiting, cough, SOB, abd pain, urinary issues, LE edema. History Information - Allergies/Home Medication List Allergies/Adverse Reactions: codeine Allergy (Mild, Verified 12/28/17 05:11) Vomiting Home Medications: Aspirin [Aspirin 81mg (*)] 81 mg PO DAILY 12/12/17 [Last Taken 02/13/18] Atorvastatin Calcium [Lipitor 20 mg (*)] 20 mg PO HS 12/12/17 [Last Taken ] Chlorthalidone [Chlorthalidone 25 mg (*)] 25 mg PO DAILY 12/12/17 [Last Taken 05:00] Cholecalciferol Vit D3 [Vitamin D3 (*)] 1,000 units PO DAILY 12/12/17 [Last Taken 02/13/18] Fluticasone Nasal [Flonase Nasal [place]] 1 sprays NASAL DAILY 12/12/17 [Last Taken 02/12/18] Loratadine [Claritin] 10 mg PO HS 12/12/17 [Last Taken 02/13/18] Omeprazole 20 mg PO HS 12/12/17 [Last Taken 02/13/18] I have personally reviewed and updated: medical history, social history, surgical history - Past Medical History diabetes type 2, hyperlipidemia Additional medical history: right shoulder infection post surgery - Surgical History Additional surgical history: as per HPI, right shoulder surgery (2008) - Social History Smoking Status: Former smoker Review of Systems Review of Systems: ROS: 10pt was reviewed & negative except for what was stated in HPI & below Physical Exam Physical Exam: Temp Pulse Resp BP Pulse Ox 36.6 C 73 18 133/85 H 93 02/14/18 08:42 02/14/18 08:42 02/14/18 08:42 02/14/18 08:42 02/14/18 08:42 Constitutional: no apparent distress, appears nourished, not in pain Eyes: anicteric sclera Ears, Nose, Mouth, Throat: moist mucous membranes, hearing normal Cardiovascular: regular rate and rhythym Respiratory: no respiratory distress Gastrointestinal: soft, non-tender abdomen Genitourinary: no bladder fullness Skin: warm, normal color, erythema (sternum), fluctuance (sternum) Musculoskeletal: full muscle strength Neurologic: AAOx3 Psychiatric: interacting appropriately, not anxious, not encephalopathic, thought process linear Assessment & Plan Assessment: 67M sternal wound infection Plan: debridement, hardware removal, possible vac placement, possible closure
[2018-02-14 09:32] LABS: INR 1.02 (0.83-1.16); PROTIME(PATIENT) 13.6 SEC (12.0-15.0)
[2018-02-14] MEDS ORDERED: BUPIVACAINE 0.25% 30 ML SDV ONE (10:12)
--- NOTE | 2018-02-14 10:23 | PDANEPAE ---
ANE History of Present Illness sternal drainage s/p AVR s/f I&D ANE Past Medical History - Cardiovascular History Hx Hypertension: Yes Hx Arrhythmias: No Hx Chest Pain: No Hx Coronary Artery / Peripheral Vascular Disease: No Hx CHF / Valvular Disease: Yes Hx Palpitations: No Cardiovascular History Comment: htn. bicupsid aortic valve. nonrheumatic aortic valve stenosis. 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 slight cough from medications - Neurologic History Hx Cerebrovascular Accident: No Hx Seizures: No Hx Dementia: No - Endocrine History Hx Diabetes: No Endocrine History Comment: pre-diabetic d/t weight - Renal History Hx Renal Disorders: Yes Renal History Comment: frequency - Liver History Hx Hepatic Disorders: No - Neurological & Psychiatric Hx Hx Neurological and Psychiatric Disorders: No - Cancer History Cancer History Comment: hx of skin ca - Congenital Disorder History Hx Congenital Disorders: No - GI History Hx Gastrointestinal Disorders: Yes Gastrointestinal History Comment: hx of egd's and colonoscopies. reflux- on omeprazole - Other Health History Other Health History: wears glasses. bilateral hearing aides - Chronic Pain History Chronic Pain: No (occ right shoulder/ arm pain) - Surgical History Prior Surgeries: at 18 yo luis f and appy. [place]op[place] [facility] [place]d 04/03/09 with Repine at [facility]. bicuspid vavle replacement ANE Review of Systems Review of Systems: - Exercise capacity METS (RN): 4 METS ANE Patient History - Allergies Allergies/Adverse Reactions: codeine Allergy (Mild, Verified 12/28/17 05:11) Vomiting - Home Medications Home medications: home medication list seen and reviewed Home Medications: Aspirin [Aspirin 81mg (*)] 81 mg PO DAILY 12/12/17 [Last Taken 02/13/18] Atorvastatin Calcium [Lipitor 20 mg (*)] 20 mg PO HS 12/12/17 [Last Taken ] Chlorthalidone [Chlorthalidone 25 mg (*)] 25 mg PO DAILY 12/12/17 [Last Taken 05:00] Cholecalciferol Vit D3 [Vitamin D3 (*)] 1,000 units PO DAILY 12/12/17 [Last Taken 02/13/18] Fluticasone Nasal [Flonase Nasal [place]] 1 sprays NASAL DAILY 12/12/17 [Last Taken 02/12/18] Loratadine [Claritin] 10 mg PO HS 12/12/17 [Last Taken 02/13/18] Omeprazole 20 mg PO HS 12/12/17 [Last Taken 02/13/18] - NPO status NPO Status: no food or drink >8 hours NPO Since - Liquids (Date): 02/13/18 NPO Since - Liquids (Time): 22:00 NPO Since - Solids (Date): 02/13/18 NPO Since - Solids (Time): 18:00 - Anes Hx Anes Hx: no prior problems - Smoking Hx Smoking Status: Former smoker - Alcohol Use Alcohol Use: Rarely - Family Anes Hx Family Anes Hx: none Family Hx Anesthesia Complications: none ANE Labs/Vital Signs - Labs - BMP Sodium: 12/29/17 labs okay - Vital Signs Blood Pressure: 133/85 Heart Rate: 73 Respiratory Rate: 18 O2 Sat (%): 93 Height: 180.34 cm Weight: 98.43 kg ANE Physical Exam - Airway Neck exam: FROM Mallampati Score: Class 2 Mouth exam: normal dental/mouth exam - Pulmonary Pulmonary: no respiratory distress - Cardiovascular Cardiovascular: regular rate and rhythym - ASA Status ASA Status: II ANE Anesthesia Plan Anesthesia Plan: GA w LMA
[2018-02-14] MEDS ORDERED: ONDANSETRON 4 MG/2 ML VIAL ONE (10:34)
[2018-02-14] MEDS ORDERED: DEXAMETHASONE 4 MG/ML VIAL ONE (10:34)
[2018-02-14] MEDS ORDERED: LIDOCAINE 2% 100 MG/5 ML SYR ONE (10:34)
[2018-02-14] MEDS ORDERED: PROPOFOL/EMULSION 500 MG/50 ML BOTTLE IV ONE (10:34)
[2018-02-14] MEDS ORDERED: fentaNYL 100 MCG/2 ML INJ ONE (10:34)
[2018-02-14] MEDS ORDERED: OXYCODONE/APAP 5/325 TAB PO PRN (11:15)
[2018-02-14] MEDS ORDERED: HYDROCODONE/APAP 5/325 TAB PO PRN ×2 (11:15→11:26)
[2018-02-14] MEDS ORDERED: METOCLOPRAMIDE 10 MG/2 ML VIAL IVP PRN ×2 (11:15→11:26)
[2018-02-14] MEDS ORDERED: ACETAMINOPHEN 325 MG TAB PO PRN (11:15)
[2018-02-14] MEDS ORDERED: METOCLOPRAMIDE 10 MG TAB PO PRN (11:15)
[2018-02-14] MEDS ORDERED: VANCOMYCIN HCL/NORMAL SALINE 250 ML IV ONE (11:18)
[2018-02-14] MEDS ORDERED: HYDROmorphONE/DILAUDID 1 MG/ML INJ IVP PRN (11:26)
[2018-02-14] MEDS ORDERED: DEXAMETHASONE 4 MG/ML VIAL IVP PRN (11:26)
[2018-02-14] MEDS ORDERED: ONDANSETRON 4 MG/2 ML VIAL IVP PRN (11:26)
[2018-02-14] MEDS ORDERED: ALBUTEROL 3 ML DEYVIAL IH PRN (11:26)
[2018-02-14] MEDS ORDERED: LR 500 ML IV PRN (11:26)
[2018-02-14] MEDS ORDERED: PHENYLEPHRINE HCL 100 MCG/ML SYR IVP PRN (11:26)
[2018-02-14] MEDS ORDERED: oxyCODONE IR 5 MG TAB PO PRN (11:26)
[2018-02-14] MEDS ORDERED: LABETALOL HCL 5 MG/ML 20 ML MDV IVP PRN (11:26)
[2018-02-14] MEDS ORDERED: MEPERIDINE 25 MG/0.5 ML AMP IVP PRN (11:26)
[2018-02-14] MEDS ORDERED: ACETAMINOPHEN 500 MG TAB PO PRN (11:26)
[2018-02-14] MEDS ORDERED: NALOXONE HCL 0.4 MG/ML INJ IVP PRN (11:26)
[2018-02-14] MEDS ORDERED: PROMETHAZINE HCL 25 MG/ML INJ IVP PRN (11:26)
[2018-02-14] MEDS ORDERED: fentaNYL 100 MCG/2 ML INJ IVP PRN (11:26)
--- NOTE | 2018-02-14 11:29 | GOP ---
[f rep st] OPERATIVE REPORT DATE OF OPERATION: 02/14/2018 SURGEON: Jose Valles DO LIVESTOCK SHOWMAN: Adriel Chase PA-C. ANESTHESIOLOGIST: Benjie Leigh MD PREOPERATIVE DIAGNOSIS: Sternal osteomyelitis. POSTOPERATIVE DIAGNOSIS: Sternal osteomyelitis PROCEDURE PERFORMED: Removal of sternal wires, debridement of subcutaneous tissue and muscle, replac ement of wound VAC. FINDINGS: DESCRIPTION OF PROCEDURE: The patient was brought to the operating room. General anesthetic was ind uced. A time-out was confirmed. The previous partial sternotomy incision was opened through the ski n and subcutaneous tissue. We then met seropurulent fluid on the anterior surface of the sternum, it was cultured. I then removed all sternal wires. The sternum was well healed and solid. There was no communication with the mediastinum. A wound VAC was placed. Dressings were applied. Patient was returned to recovery room in stable condition. /[id number]/MODL
--- NOTE | 2018-02-14 12:30 | PDMN ---
Medical Necessity Medical necessity: [facility] IP only surgery; cpt 42902 Musculoskeletal Surgery ( sternal wound infection s/p hardware removal & debridement w/wound vac placement )
[2018-02-14] MEDS: KETOROLAC 30 MG/1 ML SDV IVP PRN ×2 (14:29→23:32)
[2018-02-14] MEDS ORDERED: ALTEPLASE 2 MG VIAL IVP PRN (14:58)
--- NOTE | 2018-02-14 17:22 | GCON ---
[f rep st] CONSULTATION INFECTIOUS DISEASE CONSULTATION DATE OF CONSULTATION: 02/14/2018 REFERRING PHYSICIAN: Jose Valles DO REASON FOR CONSULTATION: Postoperative sternal infection. HISTORY OF PRESENT ILLNESS: The patient is a 67-year-old male who underwent aortic valve replacement on 12/28/2017, for bicuspid aortic valve who I am now asked to see in consultation for postoperative sternal infection. Patient describes developing 2 swollen areas over the sternal wound approximatel y 10 days ago. This subsequently was associated with increased pain, which was most notable with mov ement. Erythema was also present. Patient had his wound opened as an outpatient with findings of ne crotic fat being present. Cultures were taken at that time and showed growth of coagulase-negative S taphylococcus. At that time, he was started on cephalexin. Despite opening of the superior pole of the wound and antibiotic therapy, he had progressive symptoms prompting admission today for operative debridement. Findings in the OR, included seropurulent fluid on the anterior surface of the sternum which was cultured. Sternal wires were removed and the sternum itself was noted to be well healed a nd solid. No communication was noted into the mediastinum. Wound VAC was placed and plans are in pl [place] for subsequent closure in the next 3-4 days. The patient was given a single dose of vancomycin a nd cefazolin. Gram stain of the operative specimen shows 1+ white blood cells with no organisms and culture is pending. Patient did not note any fever, chills or night sweats. He did not feel ill oth erwise. He did not experience nausea, vomiting, or diarrhea. He was continuing to participate in [facility] rehab prior to admission. Given the above findings, I am now asked to assist in his ongoing ct nagement. PAST MEDICAL HISTORY: Bicuspid aortic valve as above, postoperative right shoulder infection in 2008 , treated with 6 weeks of IV vancomycin, hypertension. PAST SURGICAL HISTORY: Shoulder surgery for shoulder infection, aortic valve replacement as above. CURRENT MEDICATIONS: Vancomycin 1 g IV x1, cefazolin 2 g x1, aspirin 81 mg p.o. daily, Lipitor 20 mg p.o. q.h.s., Zyrtec 10 mg p.o. q.h.s., chlorthalidone 25 mg p.o. daily, vitamin D 1,000 units p.o. d aily, Lovenox 40 mg subcu daily, Flonase 1 spray each nares daily, Toradol as needed, Protonix 40 mg p.o. q.h.s. ALLERGIES: No known drug allergies, although codeine is listed as an allergy in his chart. SOCIAL HISTORY: No tobacco use. He has 2 fingers of liquor or a beer per evening. Patient has freq uent contact with pet dogs. FAMILY HISTORY: No contributory family history. REVIEW OF SYSTEMS: Outside that noted in the HPI, the remainder of 10-system review is unremarkable. PHYSICAL EXAMINATION: VITAL SIGNS: Temperature 36.6, heart rate 84, respiratory rate 18, blood pres sure 130/82, oxygen saturation 98% on room air. GENERAL: Patient is well nourished, well developed, in no acute distress. He appears nontoxic. HEENT: No scleral icterus, conjunctival injection, or conjunctival petechiae. Oropharynx shows moist mucous membranes. Dentition in fair repair. There i s no nasal discharge. There is no tenderness over the sinuses. NECK: Supple without palpable lymph adenopathy or thyromegaly. CHEST: Clear to auscultation bilaterally without adventitious sounds. R espiratory effort is normal. Wound VAC is in place centrally over the sternal area with minimal surr ounding erythema. There is no surrounding tenderness. CARDIOVASCULAR: Regular rate and rhythm with a 2/6 systolic murmur at the left upper sternal border. No gallops or rubs are noted. ABDOMEN: So ft, nontender, nondistended. There is no palpable organomegaly. Bowel sounds are present. MUSCULOS KELETAL: No cyanosis, clubbing, or edema. SKIN: No rash is present. No stigmata of endocarditis. Skin is warm and dry to touch. NEUROLOGIC: Patient is alert and interacts appropriately with exami ner. Cranial nerves 2-12 are grossly intact. Sensation is grossly intact. Muscle tone and bulk are normal. LYMPHATICS: No cervical or supraclavicular nodes. LABORATORY DATA: Creatinine on 12/30/2017, 1.0. Cultures from 02/10/2018, showing growth of coagula se-negative Staphylococcus; gram stain of operative specimen showing 1+ white blood cells with no org anisms pending. IMPRESSION: Postoperative sternal infection, status post debridement: Previous cultures at the time sternal wound was open showed growth of coagulase-negative Staph. Difficult to know if this is a tr ue pathogen or sales representative electric service of typical skin bela. Operative cultures will hopefully lend addition al data in terms of etiology allowing for targeted antibiotic therapy. Most likely, this will be ass ociated with typical skin bela, such as Staphylococcus aureus or coagulase-negative Staphylococcus. Given the relatively indolent nature, coagulase-negative Staphylococcus is certainly a consideration . RECOMMENDATIONS: 1. Vancomycin 1.5 g IV q.12 hours. 2. Await culture data for further modification of antibiotics accordingly. 3. Side effects of vancomycin, including potential for nephrotoxicity. Discussed with patient today . 4. Assess CBC and metabolic profile in a.m. for baseline values. Thank you for this consultation. We will continue to follow the patient with you. /[id number]/MODL
[2018-02-14] MEDS ORDERED: ATORVASTATIN CALCIUM 20 MG TAB PO SCH (21:00)
[2018-02-14] MEDS ORDERED: CETIRIZINE 10 MG TAB PO SCH (21:00)
[2018-02-14] MEDS ORDERED: PANTOPRAZOLE SODIUM 40 MG TAB PO SCH (21:00)
[2018-02-14] MEDS: VANCOMYCIN 1.5 GM in D5W 250 ML IV SCH (21:46)
--- NOTE | 2018-02-15 06:48 | SOAPPROG ---
SOAP Progress Note Assessment/Plan: POD #1: removal of sternal wires, debridement of subcutaneous tissue, placement of wound vac Sternal osteomyelitis s/p debridement and placement of wound vac - Home wound vac on order - Continue antibiotics as per ID - PICC in place - Plan for future closure with plastics Subjective: Chest feels less painful. Objective: Vital Signs Temp Pulse Resp BP Pulse Ox 36.3 C 73 16 110/58 L 93 02/15/18 04:00 02/15/18 04:00 02/15/18 04:00 02/15/18 04:00 02/15/18 04:00 Microbiology 02/14/18 11:02 Gram Stain - Final Chest - Eswab Laboratory Results 02/15/18 06:30 02/14/18 02/15/18 02/16/18 05:59 05:59 05:59 Intake Total 1300 Output Total 710 Balance 590 PT 13.6 SEC (12.0-15.0) 02/14/18 09:17 INR 1.02 (0.83-1.16) 02/14/18 09:17 Physical Exam - Physical Exam General Appearance: WD/WN, alert, no apparent distress EENT: No scleral icterus (R), No scleral icterus (L) Neck: normal inspection Respiratory: No respiratory distress Cardiac/Chest: regular rate, rhythm Abdomen: non-tender, soft, No distended Skin: normal color, warm/dry Extremities: No pedal edema Neuro/Psych: no motor/sensory deficits, alert, normal mood/affect, oriented x 3 ICD10 Worksheet Patient Problems: Problems Problem Status Onset Carotid atherosclerosis Acute Coronary atherosclerosis Acute Postoperative complete heart block Acute S/P aortic valve replacement with bioprosthetic valve Acute ~12/28/17 Calcific aortic stenosis of bicuspid valve Chronic Prediabetes Chronic
[2018-02-15] MEDS ORDERED: CHOLECALCIFEROL VIT D3 1,000 UNITS TAB PO SCH (09:00)
[2018-02-15] MEDS ORDERED: FLUTICASONE NASAL 120 SPRAYS/16 GM MDI EACHNARE SCH (09:00)
[2018-02-15] MEDS ORDERED: ENOXAPARIN 40 MG/0.4 ML SYR SC SCH (09:00)
[2018-02-15] MEDS ORDERED: ASPIRIN 81 MG CHEWABLE TAB PO SCH (09:00)
[2018-02-15] MEDS ORDERED: CHLORTHALIDONE 25 MG TAB PO SCH (09:00)
[2018-02-15] MEDS: VANCOMYCIN 1.5 GM in D5W 250 ML IV SCH (10:02)
--- NOTE | 2018-02-15 10:47 | PDIAF ---
- Diagnosis Diagnosis: Postoperative sternal infection Code Status: Full Code - Medication Management Discharge Medications: Medications to Continue on Transfer Aspirin [Aspirin 81mg (*)] 81 mg PO DAILY 12/12/17 [Last Taken 02/13/18] Atorvastatin Calcium [Lipitor 20 mg (*)] 20 mg PO HS 12/12/17 [Last Taken ] Chlorthalidone [Chlorthalidone 25 mg (*)] 25 mg PO DAILY 12/12/17 [Last Taken 05:00] Cholecalciferol Vit D3 [Vitamin D3 (*)] 1,000 units PO DAILY 12/12/17 [Last Taken 02/13/18] Fluticasone Nasal [Flonase Nasal [place]] 1 sprays NASAL DAILY 12/12/17 [Last Taken 02/12/18] Loratadine [Claritin] 10 mg PO HS 12/12/17 [Last Taken 02/13/18] Omeprazole 20 mg PO HS 12/12/17 [Last Taken 02/13/18] Cephalexin [Keflex (*)] 500 mg PO BID 02/14/18 [Last Taken 02/13/18 18:00] Ibuprofen [Motrin (*)] 600 mg PO QID PRN 02/14/18 [Last Taken 02/12/18] Assistant Portfolio Manager Antibiotics: Vancomycin 1.5 g IV q.12 hours Assistant Portfolio Manager Antibiotic Stop Date: 03/29/18 Discharge Medications: Refer to the Discharge Home Medication list for PRN reason. PICC Care - Routine: Yes - Orders Services needed: Home [facility] Care Face to Face: I certify that this patient was under my care and that I had the required [id number] encounter meeting the encounter requirements on the discharge day. My findings support the fact that the patient is homebound as defined in Home Care Face to Face Continued: CMS Chapter 7 Medicare Benefits Manual 30.1.1 , The condition of the patient is such that there exists a normal inability to leave home and consequently, leaving home would require a considerable and taxing effort. - Labs/Radiology CBC w/diff Date: 02/20/18 (Weekly Q Tuesday) CMP Date: 02/20/18 (Weekly Q Tuesday) Creatinine Date: 02/16/18 (Weekly Q ) Vanco Trough Date and Time: Weekly Q Tuesday and Q , 30 min before vancomycin dose, start 02/16 Call or Fax Lab and Imaging Results to: Dr. Nielsen, - Follow Up Care Current Providers and Referrals: Ernie Berumen MD [Primary Care Provider] - Fabián Nielsen MD [Medical Doctor] - 03/01/18 11:00 am
--- NOTE | 2018-02-15 12:03 | PDIAF ---
- Diagnosis Diagnosis: sternal osteomyelitis s/p debridement and vac placement Code Status: Full Code - Medication Management Discharge Medications: Medications to Continue on Transfer RX: Aspirin [Aspirin 81mg (*)] 81 mg PO DAILY 12/12/17 [Last Taken 02/13/18] RX: Atorvastatin Calcium [Lipitor 20 mg (*)] 20 mg PO HS 12/12/17 [Last Taken ] RX: Chlorthalidone [Chlorthalidone 25 mg (*)] 25 mg PO DAILY 12/12/17 [Last Taken 02/14/18 05:00] RX: Cholecalciferol Vit D3 [Vitamin D3 (*)] 1,000 units PO DAILY 12/12/17 [Last Taken 02/13/18] RX: Fluticasone Nasal [Flonase Nasal [place]] 1 sprays NASAL DAILY 12/12/17 [Last Taken 02/12/18] RX: Loratadine [Claritin] 10 mg PO HS 12/12/17 [Last Taken 02/13/18] RX: Omeprazole 20 mg PO HS 12/12/17 [Last Taken 02/13/18] RX: Ibuprofen [Motrin (*)] 600 mg PO QID PRN 02/14/18 [Last Taken 02/12/18] RX: Acetaminophen [Tylenol 325mg (*)] 325 - 650 mg PO Q4HRS PRN tab 02/15/18 [ Last Taken Unknown] RX: D5w 250 ml IV Q12H bag 02/15/18 [Last Taken Unknown] RX: Hydrocodone/APAP 5/325 [Paradox 5/325 (*)] 1 tab PO Q4HRS PRN #20 tab [Last Taken Unknown] RX: Vancomycin [Vancomycin (*)] 1.5 gm IV Q12H vial 02/15/18 [Last Taken Unknown] Sales Technician Home Theater Antibiotics: Vancomycin 1.5 g IV q.12 hours Sales Technician Home Theater Antibiotic Stop Date: 03/29/18 Discharge Medications: Refer to the Discharge Home Medication list for PRN reason. PICC Care - Routine: Yes - Orders Services needed: Home Long-Term Care Face to Face: I certify that this patient was under my care and that I had the required [id number] encounter meeting the encounter requirements on the discharge day. My findings support the fact that the patient is homebound as defined in Home Care Face to Face Continued: [facility] Chapter 7 Medicare Benefits Manual 30.1.1 , The condition of the patient is such that there exists a normal inability to leave home and consequently, leaving home would require a considerable and taxing effort. Isolation Type: None Diet Recommendation: ADA 2000 consistent carb Diet Texture: Regular Texture Diet, Thin Liquids, Meds Whole w/Liquids Wing: No Additional Instructions: - RN to change wound vac Mondays, Wednesdays, and Fridays (125 mm Hg of suction , continuous, low intensity) - OK to clamp and disconnect wound vac as needed - OK to shower, try not to get dressing wet - Labs/Radiology CBC w/diff Date: 02/20/18 (Weekly Q Tuesday) CMP Date: 02/20/18 (Weekly Q Tuesday) Creatinine Date: 02/16/18 (Weekly Q ) Vanco Trough Date and Time: Weekly Q Tuesday and Q , 30 min before vancomycin dose, start 02/16 Call or Fax Lab and Imaging Results to: Dr. Nielsen, - Follow Up Care Current Providers and Referrals: Ernie Berumen MD [Primary Care Provider] - Fabián Nielsen MD [Medical Doctor] - 03/01/18 11:00 am Jose Valles DO [Doctor of Osteopathy] - 02/21/18 11:30 am
--- NOTE | 2018-02-15 14:30 | PCMIDPN ---
Assessment/Plan: Assessment/Plan: * Postoperative sternal wound infection/osteomyelitis status post debridement and wound VAC placement: Plans for wound closure next week with plastic surgery. Cultures are no growth to date although relatively young. Will continue vancomycin in interim with modification according to culture results if possible. Will obtain twice weekly creatinine and vancomycin trough with weekly CBC and CMP while on vancomycin therapy. Patient will follow-up with me in the office. Clinical findings and plan reviewed with patient Dr. Valles. 02/15/18 14:27 02/15/18 14:29 Subjective: Patient without specific complaints. Chest pain decreased versus when admitted. No itching, rash or diarrhea with vancomycin. Objective: Vital Signs Temp Pulse Resp BP Pulse Ox 36.4 C 55 L 14 109/65 91 L 02/15/18 11:02 02/15/18 11:02 02/15/18 11:02 02/15/18 11:02 02/15/18 11:02 Microbiology 02/14/18 11:02 Gram Stain - Final Chest - Eswab Laboratory Results 02/15/18 06:30 02/15/18 06:30 02/14/18 02/15/18 02/16/18 05:59 05:59 05:59 Intake Total 1300 Output Total 710 Balance 590 Vancomycin # 2 Sternal culture no growth to date - Physical Exam General Appearance: alert, no apparent distress Respiratory: lungs clear, No respiratory distress Cardiac/Chest: regular rate, rhythm, systolic murmur (2/6 left upper sternal border), other (Wound VAC in place without surrounding erythema or tenderness) Abdomen: non-tender, No distended Skin: No embolic lesions ICD10 Worksheet Patient Problems: Problems Problem Status Onset Carotid atherosclerosis Acute Coronary atherosclerosis Acute Postoperative complete heart block Acute S/P aortic valve replacement with bioprosthetic valve Acute ~12/28/17 Calcific aortic stenosis of bicuspid valve Chronic Prediabetes Chronic
--- NOTE | 2018-02-15 16:19 | PDDCSUM ---
Discharge Summary Discharge Summary: ADMISSION DATE: 02/14/18 DISCHARGE DATE: 02/15/18 DISCHARGE DIAGNOSES 1. Sternal osteomyelitis PROCEDURES 02/14/18, Jose Valles: 1. Removal of sternal wires, debridement of sternal wound, wound vac placement HOSPITAL COURSE BY PROBLEM LIST 1. Sternal osteomyelitis - s/p debridement with vac placement. PICC placed for jail IV vancomycin as per Dr. Nielsen (ID). Wound vac to be changed MWF by home services. Dr. Valles to d/w with plastic surgeon plan for eventual closure. CONDITION Fair DISPOSITION Home with RN services ACTIVITY Pt was instructed on wound care and which problems to call [facility] with. Please see Discharge Plan in chart for specifics. DISCHARGE MEDICATIONS Continue: Aspirin [Aspirin 81mg (*)] 81 mg PO DAILY Atorvastatin Calcium [Lipitor 20 mg (*)] 20 mg PO HS Chlorthalidone [Chlorthalidone 25 mg (*)] 25 mg PO DAILY Cholecalciferol Vit D3 [Vitamin D3 (*)] 1,000 units PO DAILY Fluticasone Nasal [Flonase Nasal [place]] 1 sprays NASAL DAILY Loratadine [Claritin] 10 mg PO HS Omeprazole 20 mg PO HS Ibuprofen [Motrin (*)] 600 mg PO QID PRN New: Acetaminophen [Tylenol 325mg (*)] 325 - 650 mg PO Q4HRS PRN D5w 250 ml IV Q12H Hydrocodone/APAP 5/325 [[place] 5/325 (*)] 1 tab PO Q4HRS PRN #20 Vancomycin [Vancomycin (*)] 1.5 gm IV Q12H PENDING STUDIES/LABS 1. Labs as per ID FOLLOW-UP 1. Jose Valles, 02/21/18, 11:30 AM 2. Fabián Nielsen, 03/01/18, 11:00 AM
--- NOTE | 2018-02-15 16:20 | ASMTLACE ---
LACE Length of stay for Answers: 2 days current admission Acuity / Level of Answers: Yes Care: Did the patient have an inpatient admission? Comorbidities - select Answers: Congestive heart failure all that apply Diabetes (uncontrolled or controlled) Other Notes: HTN # of Emergency department Answers: 0 visits in the last 6 months Score: 9 Date Signed: 02/15/2018 04:19 PM Electronically Signed By:Areli Mendez
[2018-02-15 16:22] VITALS: BP 144/81
--- NOTE | 2018-02-15 16:30 | ASMTDCNOTE ---
Case Management Discharge Discharge Order Complete? Answers: Yes Patient to Obtain Answers: via Family Medications Transportation Arranged Answers: Family/Friends Faxed Final Orders Answers: Yes Agency/Facility Transfer Answers: Yes Report Printed & Faxed to Receiving Agency Family Notified Answers: Yes Notes: in room Discharge Comments Notes: 02/15/2018 CAse Management Note Anaya from [facility] completed wound vac application and release. Case Management had pt sign delivery documents and faxed back to Anaya. Faxed final orders to Susan. Contacted Tina on the phone. Tina to have meds delivered to house by 1999 samara. Faxed final orders to [facility]. Notified on the phone. [facility] to send RN for teaching samara. Pt to follow up with Dr. Valles next week. Date Signed: 02/15/2018 04:30 PM Electronically Signed By:Jen Brandon RN
--- NOTE | 2018-02-15 16:33 | ASDISCHSUM ---
Discharge Information Plan Status:IV ABX/Infusion Medically Cleared to Leave:02/15/2018 Discharge Date:02/15/2018 CM D/C Disposition:Home Health Service ADT D/C Disposition:Home Health Service Projected Discharge Date:02/15/2018 11:00 AM Transportation at D/C:Family Discharge Delay Reason: Follow-Up Date:02/15/2018 11:00 AM Discharge Slot: Final Diagnosis: Placement Information Referral Type:Home Infusion Referral ID:[id number] Provider Name:[facility] [place] [facility] Address 1:[address] Address 2: City:[place] Selection Factors: State:[place] Referral Type:[place] Referral Referral ID:[id number] Provider Name:[facility] Address 1:[address] Address 2: City:[place] Selection Factors: State:[place] Referral Type:*Home Health Care Services Referral ID:[id number] Provider Name:[facility] Address 1:[address] Address 2: City:[place] Selection Factors: State:[place] Patient Contact Information Contact Name:GARRY Relationship: Address:[address] City:[facility] Phone: State/Zip Code:[place] [address] Email: Financial Information Financial Class:Medicare Primary Plan Desc:MEDICARE INPATIENT Primary Plan Number:[id number] Secondary Plan Desc:[facility] [employer]ERAL PLAN Secondary Plan Number:[id number] Assessment Information LACE LACE Length of stay for Answers: 2 days current admission Acuity / Level of Answers: Yes Care: Did the patient have an inpatient admission? Comorbidities - select Answers: Congestive heart failure all that apply Diabetes (uncontrolled or controlled) Other Notes: HTN # of Emergency department Answers: 0 visits in the last 6 months Score: 9 Date Signed: 02/15/2018 04:19 PM Electronically Signed By:Areli Mendez Case Management Discharge Plan Note Case Management Discharge Discharge Order Complete? Answers: Yes Patient to Obtain Answers: via Family Medications Transportation Arranged Answers: Family/Friends Faxed Final Orders Answers: Yes Agency/Facility Transfer Answers: Yes Report Printed & Faxed to Receiving Agency Family Notified Answers: Yes Notes: in room Discharge Comments Notes: 02/15/2018 CAse Management Note Anaya from [facility] completed wound vac application and release. Case Management had pt sign delivery documents and faxed back to Anaya. Faxed final orders to [facility]. Contacted Tina on the phone. Tina to have meds delivered to house by Glenda pascual. Faxed final orders to [facility]. Notified on the phone. [facility] to send RN for teaching samara. Pt to follow up with Dr. Valles next week. Date Signed: 02/15/2018 04:30 PM Electronically Signed By:Jen Brandon RN Intervention Information
== END 2018-02-15 17:10 | disposition home health service (06) | DRG 857 ==
LOC: FSGY 07:53 → F2W 11:15
PROVIDERS: ADMIT Thoracic Surgery (Cardiothoracic Vascular Surgery); ATTEND Thoracic Surgery (Cardiothoracic Vascular Surgery)
PROC: 0PP004Z Removal of Internal Fixation Device from Sternum, Open Approach (ICD-10-PCS; principal; 2018-02-14 10:00)
PROC: 02HV33Z Insertion of Infusion Device into Superior Vena Cava, Percutaneous Approach (ICD-10-PCS; 2018-02-14 10:00)
DX: T81.4XXA Infection following a procedure, initial encounter (principal); M86.18 Other acute osteomyelitis, other site; B95.7 Other staphylococcus as the cause of diseases classified elsewhere; E11.9 Type 2 diabetes mellitus without complications; E78.5 Hyperlipidemia, unspecified; G47.33 Obstructive sleep apnea (adult) (pediatric); I10 Essential (primary) hypertension; Z95.3 Presence of xenogenic heart valve; Z87.891 Personal history of nicotine dependence
CPT/HCPCS: C1751; J0690; J1100; J1650; J1885; J2001; J2405; J2704; J3010; J3370

== ENCOUNTER 2018-02-27 10:50 | Emergency (ER) | payer OTHER, BC ==
[2018-02-27] MEDS ORDERED: ALTEPLASE 2 MG VIAL IVP ONE (11:36)
--- NOTE | 2018-02-27 12:09 | EDPHY ---
H & P Time Seen by Provider: 02/27/18 11:20 HPI/ROS: CHIEF COMPLAINT: PICC line clogged HISTORY OF PRESENT ILLNESS: 67-year-old male presents to the emergency department with concerns about his PICC line being clogged. Patient had valve repair several weeks ago and developed a subsequent infection about 6 weeks later. He has been receiving vancomycin IV twice daily through his PICC line for the last 2 weeks and today his home health nurse was having difficulty drawing blood and concerned about a clogged PICC line. The patient states he otherwise feels fine. Denies fever. Denies pain in his chest or difficulty breathing. Denies abdominal pain. The patient still has a wound VAC in place from his infection in chest. REVIEW OF SYSTEMS: Constitutional: No fever, no chills. Eyes: No double or blurry vision. ENT: No sore throat. Respiratory: No cough, no shortness of breath. Cardiac: No chest pain. Gastrointestinal: No abdominal pain, vomiting or diarrhea. Genitourinary: No dysuria. Musculoskeletal: No neck or back pain. Skin: No rashes. Neurological: No headache. Past Medical/Surgical History: Aortic valve replacement Social History: Smoking Status: Former smoker Physical Exam: General Appearance: Alert, no distress. Afebrile. No apparent distress. 36.5 , 95% on room air. Eyes: Pupils equal and round. Extraocular motions are all intact. ENT: Mouth: Mucous membranes moist. Respiratory: No wheezing, rhonchi, or rales, lungs are clear to auscultation. The patient has wound VAC present in the anterior aspect of his chest with dressing placed. There is no surrounding redness. Nontender to palpate. Dressing was kept in place. Cardiovascular: Regular rate and rhythm. Systolic murmur heard best at the right sternal border. Gastrointestinal: Abdomen is soft and nontender, no masses, no rebound or guarding, bowel sounds normal. Neurological: Alert and oriented x 3, cranial nerves II through XII grossly intact Skin: Warm and dry, no rashes. Musculoskeletal: Nontender to palpate along the cervical, thoracic or lumbar spine. Neck is supple. Extremities: Full range of motion and no peripheral edema. Psychiatric: Patient is oriented X 3, there is no agitation. Constitutional: Initial Vital Signs Temperature (C) 36.5 C 02/27/18 11:08 Heart Rate 64 07/09/18 11:08 Respiratory Rate 16 02/27/18 11:08 Blood Pressure 129/76 H 02/27/18 11:08 O2 Sat (%) 95 02/27/18 11:08 O2 Delivery Mode Room Air Allergies/Adverse Reactions: codeine Allergy (Mild, Verified 02/27/18 11:06) Vomiting Home Medications: Medication Instructions Recorded Atorvastatin Calcium [Lipitor 20 20 mg PO HS 12/12/17 mg (*)] Chlorthalidone [Chlorthalidone 25 25 mg PO DAILY 12/12/17 mg (*)] Cholecalciferol Vit D3 [Vitamin D3 1,000 units PO DAILY 12/12/17 (*)] Fluticasone Nasal [Flonase Nasal 1 sprays NASAL DAILY 12/12/17 Camilla] Loratadine [Claritin] 10 mg PO HS 12/12/17 Omeprazole 20 mg PO HS 12/12/17 Ibuprofen [Motrin (*)] 600 mg PO QID PRN 02/14/18 Vancomycin [Vancomycin (*)] 1.5 gm IV Q12H vial 02/15/18 B Complex with Vitamin C 02/27/18 Fish Oil 1,000 mg Softgel 02/27/18 Medical Decision Making ED Course/Re-evaluation: 67-year-old male presents to the emergency department with a clogged PICC line. This was resolved using Cathflo. The patient was given his 1.5 g of IV vancomycin while he was here. The patient will continue IV vancomycin at home Q 12 hr as scheduled. Differential Diagnosis: Including but not limited to PICC line displacement, clogged PICC line, cellulitis, DVT - Data Points Medications Given: Discontinued Medications Alteplase, Recombinant (Cathflo Activase) 2 mg IVP EDNOW ONE Stop: 02/27/18 11:37 Last Admin: 02/27/18 11:55 Dose: 2 mg Vancomycin HCl 1.5 gm/ (Dextrose) 250 mls @ 166.67 mls/hr IV EDNOW ONE PRN Reason: Protocol Stop: 02/27/18 14:47 Last Admin: 02/27/18 14:13 Dose: Not Given Vancomycin HCl 1.5 gm/ Sodium (Chloride) 250 mls @ 166.67 mls/hr IV EDNOW ONE PRN Reason: Protocol Stop: 02/27/18 15:29 Last Admin: 02/27/18 13:41 Dose: 250 mls Departure - Departure Disposition: Home, Routine, Self-Care Clinical Impression: Occluded PICC line Qualifiers: Encounter type: initial encounter Qualified Code(s): T82.898A - Other specified complication of vascular prosthetic devices, implants and grafts, initial encounter Condition: Good Instructions: How to Flush Your PICC or Midline Catheter (ED) Additional Instructions: Your PICC line has been flushed and is functioning now. Your given 1.5 g of vancomycin per your scheduled dose in the emergency department. Your next dose will be 12 hr from infusion. Referrals: Ernie Berumen MD [Primary Care Provider] - As per Instructions
[2018-02-27] MEDS ORDERED: VANCOMYCIN 1.5 GM in D5W 250 ML IV ONE (13:18)
[2018-02-27] MEDS ORDERED: VANCOMYCIN 1.5 GM in NS 250 ML IV ONE (14:00)
[2018-02-27 15:35] VITALS: BP 135/82
[2018-02-28] MEDS ORDERED: LABETALOL HCL 5 MG/ML 20 ML MDV ONE (16:47)
[2018-02-28] MEDS ORDERED: PROPOFOL 200 MG/20 ML VIAL ONE (17:11)
== END 2018-02-27 15:33 | disposition home or self-care (01) ==
DX: T82.898A Other specified complication of vascular prosthetic devices, implants and grafts, initial encounter (principal); Z87.891 Personal history of nicotine dependence; Y71.2 Prosthetic and other implants, materials and accessory cardiovascular devices associated with adverse incidents
CPT/HCPCS: 96361; 96374; 99284; J2997; J3370; J2704

== ENCOUNTER 2018-02-28 14:12 | Observation (INO) | payer OTHER, BC ==
[2018-02-28] MEDS ORDERED: LR 1,000 ML IV ONE (14:47)
[2018-02-28] MEDS ORDERED: PROPOFOL/EMULSION 500 MG/50 ML BOTTLE IV ONE (15:48)
[2018-02-28] MEDS ORDERED: fentaNYL 250 MCG/5 ML INJ ONE (15:51)
[2018-02-28] MEDS ORDERED: BACITRACIN ZINC 14.2 GM OINTTUBE TP ONE (15:52)
[2018-02-28] MEDS ORDERED: EPINEPHrine 1 MG/ML INJ ONE (15:53)
[2018-02-28] MEDS ORDERED: GENTAMICIN SULFATE 80 MG/2 ML VIAL ONE (15:53)
[2018-02-28] MEDS ORDERED: LIDOCAINE 1% 300 MG/30 ML SDV ONE (15:53)
[2018-02-28] MEDS ORDERED: BACITRACIN 50,000 UNITS/10 ML SYR IRR ONE (15:54)
[2018-02-28] MEDS ORDERED: CHLORHEXIDINE GLUC HIBICLENS 118 ML BTL TP ONE (15:54)
[2018-02-28] MEDS ORDERED: ceFAZolin 1 GM/5 ML SYR ONE (15:54)
[2018-02-28] MEDS ORDERED: BUPIVACAINE 0.25% 30 ML SDV ONE (15:55)
[2018-02-28] MEDS ORDERED: MIDAZOLAM 2 MG/2 ML VIAL ONE (15:59)
[2018-02-28] MEDS ORDERED: MIDAZOLAM 2 MG/2 ML VIAL IVP ONE (15:59)
--- NOTE | 2018-02-28 16:01 | PDANEPAE ---
ANE History of Present Illness 67 year old male for debridement of sternal wound and pec flap closure. ANE Past Medical History - Cardiovascular History Hx Hypertension: Yes Hx Arrhythmias: No Hx Chest Pain: No Hx Coronary Artery / Peripheral Vascular Disease: No Hx CHF / Valvular Disease: Yes Hx Palpitations: No Cardiovascular History Comment: htn. bicupsid aortic valve. nonrheumatic aortic valve stenosis. 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 slight cough from medications - Neurologic History Hx Cerebrovascular Accident: No Hx Seizures: No Hx Dementia: No - Endocrine History Hx Diabetes: No Endocrine History Comment: pre-diabetic d/t weight - Renal History Hx Renal Disorders: Yes Renal History Comment: frequency - Liver History Hx Hepatic Disorders: No - Neurological & Psychiatric Hx Hx Neurological and Psychiatric Disorders: No - Cancer History Hx Cancer: No Cancer History Comment: hx of skin ca - Congenital Disorder History Hx Congenital Disorders: No - GI History Hx Gastrointestinal Disorders: Yes Gastrointestinal History Comment: hx of egd's and colonoscopies. reflux- on omeprazole - Other Health History Other Health History: wears glasses. bilateral hearing aides - Chronic Pain History Chronic Pain: No (occ right shoulder/ arm pain) - Surgical History Prior Surgeries: at 18 yo luis f and appy. colonoscopies. right shoulder scope at [facility] [place]. then needed i&d 04/03/[address] [facility]. bicuspid vavle replacement 12/2017 ANE Review of Systems Review of systems is: negative Review of Systems: - Exercise capacity METS (RN): 4 METS ANE Patient History - Allergies Allergies/Adverse Reactions: codeine Allergy (Mild, Verified 02/27/18 11:06) Vomiting - Home Medications Home Medications: Atorvastatin Calcium [Lipitor 20 mg (*)] 20 mg PO HS 12/12/17 [Last Taken 18:00] Chlorthalidone [Chlorthalidone 25 mg (*)] 25 mg PO DAILY 12/12/17 [Last Taken 06:00] Cholecalciferol Vit D3 [Vitamin D3 (*)] 1,000 units PO DAILY 12/12/17 [Last Taken 02/27/18 06:00] Fluticasone Nasal [Flonase Nasal [place]] 1 sprays NASAL DAILY 12/12/17 [Last Taken 02/27/18 18:00] Loratadine [Claritin] 10 mg PO HS 12/12/17 [Last Taken 02/27/18 18:00] Omeprazole 20 mg PO HS 12/12/17 [Last Taken 02/28/18 05:00] Ibuprofen [Motrin (*)] 600 mg PO QID PRN 02/14/18 [Last Taken 1 Week Ago ~] B Complex with Vitamin C 02/27/18 [Last Taken 02/27/18 06:00] Fish Oil 1,000 mg Softgel 02/27/18 [Last Taken 02/27/18 06:00] Aspirin 02/28/18 [Last Taken 02/24/18] - NPO status NPO Since - Liquids (Date): 02/28/18 NPO Since - Liquids (Time): 12:00 NPO Since - Solids (Date): 02/28/18 NPO Since - Solids (Time): 05:00 - Smoking Hx Smoking Status: Former smoker - Family Anes Hx Family Hx Anesthesia Complications: none ANE Labs/Vital Signs - Vital Signs Blood Pressure: 127/83 Heart Rate: 77 Respiratory Rate: 15 O2 Sat (%): 93 Height: 180.34 cm Weight: 98.43 kg ANE Physical Exam - Airway Neck exam: FROM Mallampati Score: Class 2 Mouth exam: normal dental/mouth exam - Pulmonary Pulmonary: no respiratory distress - Cardiovascular Cardiovascular: regular rate and rhythym - ASA Status ASA Status: III ANE Anesthesia Plan Anesthesia Plan: general endotracheal anesthesia
[2018-02-28] MEDS ORDERED: VANCOMYCIN 1 GM VIAL ONE (16:07)
[2018-02-28] MEDS ORDERED: VANCOMYCIN 500 MG/10 ML VIAL IV ONE (16:08)
--- NOTE | 2018-02-28 16:08 | PDHPUP ---
History & Physical Update H&P update statement: This history and physical update is based on an assessment of the patient which was completed after admission or registration (within 24 hours), but prior to the surgery/procedure. H&P update: H&P reviewed & patient examined H&P changes: open sternal wound with vac in place
[2018-02-28] MEDS ORDERED: HYDROCODONE/APAP 5/325 TAB PO PRN (16:09)
[2018-02-28] MEDS ORDERED: PROMETHAZINE HCL 25 MG/ML INJ IVP PRN (16:09)
[2018-02-28] MEDS ORDERED: TEMAZEPAM 15 MG CAP PO PRN (16:09)
[2018-02-28] MEDS ORDERED: ONDANSETRON 4 MG/2 ML VIAL IVP PRN (16:09)
[2018-02-28] MEDS ORDERED: HYDROmorphONE/DILAUDID 1 MG/ML INJ IVP PRN (16:11)
[2018-02-28] MEDS ORDERED: VANCOMYCIN 1.5 GM IV SCH (16:15)
[2018-02-28] MEDS ORDERED: VANCOMYCIN 1.5 GM in D5W 250 ML IV ONE (17:00)
[2018-02-28] MEDS ORDERED: DEXAMETHASONE 4 MG/ML VIAL IVP PRN (17:13)
[2018-02-28] MEDS ORDERED: ALBUTEROL 3 ML DEYVIAL IH PRN (17:13)
[2018-02-28] MEDS ORDERED: MEPERIDINE 25 MG/0.5 ML AMP IVP PRN (17:13)
[2018-02-28] MEDS ORDERED: LABETALOL HCL 5 MG/ML 20 ML MDV IVP PRN (17:13)
[2018-02-28] MEDS ORDERED: LR 500 ML IV PRN (17:13)
[2018-02-28] MEDS ORDERED: fentaNYL 100 MCG/2 ML INJ IVP PRN (17:13)
[2018-02-28] MEDS ORDERED: NALOXONE HCL 0.4 MG/ML INJ IVP PRN (17:13)
--- NOTE | 2018-02-28 20:04 | GOP ---
[f rep st] OPERATIVE REPORT DATE OF OPERATION: 02/28/2018 SURGEON: Avelina Alcantar Jr., MD FIBER LOCKING SUPERVISOR: Aurelio Adams STREET CONTRACTOR, by surgeon request. ANESTHESIA: General inhalational anesthetic. ANESTHESIOLOGIST: Dr. Bety Estes. PREOPERATIVE DIAGNOSIS: Open sternal wound, status post sternal wound infection following open heart valve surgery. POSTOPERATIVE DIAGNOSIS: Open sternal wound, status post sternal wound infection following open hear t valve surgery. PROCEDURE PERFORMED: 1. Sternal debridement. 2. Sternal reconstruction with left pectoralis rotation flap. 3. Sternal wound closure with bilateral chest wall advancement flaps for a defect 15 cm x 5 cm. FINDINGS: ESTIMATED BLOOD LOSS: 150 cc. INDICATIONS: The patient is a 67-year-old white male, who underwent valve surgery approximately 2 mo nths ago. He developed sternal wound infection approximately 6 weeks after the initial procedure man dating irrigation, debridement, and VAC placement. He was evaluated and deemed a good candidate to h ave the wound debrided and closed as above, and was taken to the operating room for that purpose. DESCRIPTION OF PROCEDURE: After risks and benefits of procedure were explained the patient highlight ing bleeding, infection, recurrent wound breakdown, muscle weakness or soreness, numbness, loss of fu nction, pneumothorax, poor cosmetic outcome, and need for additional procedures, formal operative con sent was obtained. He was taken to the operating room. After adequate inhalational general anesthes ia was provided by Dr. Estes, the wound VAC was removed. He had good granulation with no evidence o f active infection. The wound edges were injected with lidocaine containing adrenaline. He was prep ped and draped in normal sterile fashion. Procedure began by excising 5 mm of skin circumferentially around the wound and surgically debriding and removing all exposed soft tissue and bone. There was no evidence of active infection. I elected to reconstruct that defect using a left rotation flap to minimize donor deformity and chest wall deformity. The skin was elevated off the prepectoral fascia. The muscle was then elevated. It was released from its sternal origin inferiorly to its lateral po int. The insertion was then divided and the muscle was maintained on a thoracoacromial well-vascular ized pedicle. This allowed excellent rotation to cover the entire defect. The pocket was irrigated using normal saline. Hemostasis was assured using surgical clips as well as the electrocautery. The pocket was rinsed with copious amounts of normal saline. The muscle flap was then inset over the st ernal defect using buried 2-0 Vicryl sutures. It was inset under no tension. The defect left was th en 15 x 5 cm. I elected to close with bilateral chest wall advancement flaps. The right chest wall was then elevated in the prepectoral plane. Two 15 round drains were placed, 1 extended across the c hest in the left axilla and the other up the right chest wall. The pocket was irrigated with a pulse lavage silverware buffing machine operator with vancomycin. 30 cc of 0.25% plain Marcaine was placed into the pocket. Chest wall flaps were advanced to the midline. Superficial fascia was closed using 2-0 Vicryl suture. Ski n edges reapproximated using everting deep dermal 3-0 Monocryl suture and further everted using surgi eric jovana. Bacitracin, Xeroform, 4 x 4's, dressings were applied. He was extubated in the operati ng room, taken to recovery room awake in stable condition. DRAINS: 2 CLEO drains were placed. COMPLICATIONS: No complications. /[id number]/MODL
[2018-02-28] MEDS: LR 1,000 ML IV SCH (20:51)
[2018-02-28] MEDS: ALPRAZolam 0.25 MG TAB PO SCH (20:59)
[2018-02-28] MEDS ORDERED: ATORVASTATIN CALCIUM 20 MG TAB PO SCH (21:00)
[2018-03-01] MEDS ORDERED: VANCOMYCIN 1.5 GM in NS 250 ML IV SCH ×2 (05:00→08:30)
[2018-03-01] MEDS: LR 1,000 ML IV SCH (05:04)
[2018-03-01] MEDS: ALPRAZolam 0.25 MG TAB PO SCH (08:39)
[2018-03-01] MEDS ORDERED: CHLORTHALIDONE 25 MG TAB PO SCH (09:00)
[2018-03-01] MEDS ORDERED: PANTOPRAZOLE SODIUM 40 MG TAB PO SCH (09:00)
--- NOTE | 2018-03-01 09:59 | PDIAF ---
- Diagnosis Diagnosis: Sternal osteomyelitis Code Status: Full Code - Medication Management Discharge Medications: Medications to Continue on Transfer Atorvastatin Calcium [Lipitor 20 mg (*)] 20 mg PO HS 12/12/17 [Last Taken 18:00] Chlorthalidone [Chlorthalidone 25 mg (*)] 25 mg PO DAILY 12/12/17 [Last Taken 06:00] Cholecalciferol Vit D3 [Vitamin D3 (*)] 1,000 units PO DAILY 12/12/17 [Last Taken 02/27/18 06:00] Fluticasone Nasal [Flonase Nasal [place]] 1 sprays NASAL DAILY 12/12/17 [Last Taken 02/27/18 18:00] Loratadine [Claritin] 10 mg PO HS 12/12/17 [Last Taken 02/27/18 18:00] Omeprazole 20 mg PO DAILY 12/12/17 [Last Taken 02/28/18 05:00] Ibuprofen [Motrin (*)] 600 mg PO QID PRN 02/14/18 [Last Taken 02/12/18] Vancomycin [Vancomycin (*)] 1.5 gm IV Q12H vial 02/15/18 [Last Taken 02/28/18 05:00] [place]-3/Dha/Epa/Fish Oil [Fish Oil 1,000 mg Softgel] 1 each PO DAILY 02/27/18 [ Last Taken 02/27/18 06:00] Aspirin [Aspirin 81mg (*)] 81 mg PO DAILY 02/28/18 [Last Taken 02/24/18] Herbals/Supplements -Info Only 1 ea PO DAILY 02/28/18 [Last Taken 02/27/18 18:00 ] Glass Inspector Antibiotics: Vancomycin 1.5 g IV q 12 hours Glass Inspector Antibiotic Stop Date: 03/29/18 Discharge Medications: Refer to the Discharge Home Medication list for PRN reason. PICC Care - Routine: Yes - Orders Isolation Type: None Diet Recommendation: no restrictions on diet Diet Texture: Regular Texture Diet - Labs/Radiology CBC w/diff Date: 03/06/18 (weekly q Mon) CMP Date: 03/06/18 (weekly q Tue) Creatinine Date: 03/02/18 (weekly q ) Vanco Trough Date and Time: weekly q Tue and ; 30 minutes before dose Call or Fax Lab and Imaging Results to: Dr. Nielsen, - Follow Up Care Current Providers and Referrals: Ernie Berumen MD [Primary Care Provider] - Fabián Nielsen MD [Medical Doctor] - 03/14/18 11:30 am
--- NOTE | 2018-03-01 10:08 | PCMIDPN ---
Assessment/Plan: Assessment/Plan: * Sternal osteomyelitis status post debridement and flap coverage: Operative findings did not show evidence of ongoing active infection. Patient is completing 6 weeks of vancomycin for sternal osteomyelitis with culture showing growth of Staphylococcus epidermidis and P. acnes. S. epidermidis isolate is B- lactam susceptible. Will therefore change to cefazolin to complete remainder of therapy as improved therapeutic index with less risk for nephrotoxicity. Side effects of cefazolin including potential for allergic reactions or C difficile colitis were reviewed. Case management informed of change in therapy. Time spent, greater than 35 min, of which greater than half was spent in education/counseling/coordination of care related to ongoing antibiotic therapy including plans to change to cefazolin based on culture findings with duration of therapy and unchanged. 03/01/18 10:04 03/01/18 10:08 03/02/18 08:14 Objective: Vital Signs Temp Pulse Resp BP Pulse Ox 36.2 C 85 16 119/84 H 96 03/01/18 07:11 03/01/18 07:11 03/01/18 07:11 03/01/18 07:11 03/01/18 07:11 02/28/18 03/01/18 03/02/18 05:59 05:59 05:59 Intake Total 2406 Output Total 500 Balance 1906 - Physical Exam General Appearance: alert, no apparent distress Respiratory: lungs clear Cardiac/Chest: regular rate, rhythm - Line/s RUE PICC Lines: No drainage, No erythema ICD10 Worksheet Patient Problems: Problems Problem Status Onset Carotid atherosclerosis Acute Coronary atherosclerosis Acute Postoperative complete heart block Acute S/P aortic valve replacement with bioprosthetic valve Acute ~12/28/17 Calcific aortic stenosis of bicuspid valve Chronic Prediabetes Chronic
--- NOTE | 2018-03-01 10:19 | PDIAF ---
- Diagnosis Diagnosis: Sternal osteomyelitis Code Status: Full Code - Medication Management Discharge Medications: Medications to Continue on Transfer Atorvastatin Calcium [Lipitor 20 mg (*)] 20 mg PO HS 12/12/17 [Last Taken 18:00] Chlorthalidone [Chlorthalidone 25 mg (*)] 25 mg PO DAILY 12/12/17 [Last Taken 06:00] Cholecalciferol Vit D3 [Vitamin D3 (*)] 1,000 units PO DAILY 12/12/17 [Last Taken 02/27/18 06:00] Fluticasone Nasal [Flonase Nasal [place]] 1 sprays NASAL DAILY 12/12/17 [Last Taken 02/27/18 18:00] Loratadine [Claritin] 10 mg PO HS 12/12/17 [Last Taken 02/27/18 18:00] Omeprazole 20 mg PO DAILY 12/12/17 [Last Taken 02/28/18 05:00] Ibuprofen [Motrin (*)] 600 mg PO QID PRN 02/14/18 [Last Taken 02/12/18] Vancomycin [Vancomycin (*)] 1.5 gm IV Q12H vial 02/15/18 [Last Taken 02/28/18 05:00] [place]-3/Dha/Epa/Fish Oil [Fish Oil 1,000 mg Softgel] 1 each PO DAILY 02/27/18 [ Last Taken 02/27/18 06:00] Aspirin [Aspirin 81mg (*)] 81 mg PO DAILY 02/28/18 [Last Taken 02/24/18] Herbals/Supplements -Info Only 1 ea PO DAILY 02/28/18 [Last Taken 02/27/18 18:00 ] Software Project Engineer Antibiotics: Cefazolin 2 g IV q 8 hours Half-Way Antibiotic Stop Date: 03/29/18 Discharge Medications: Refer to the Discharge Home Medication list for PRN reason. PICC Care - Routine: Yes - Orders Isolation Type: None Diet Recommendation: no restrictions on diet Diet Texture: Regular Texture Diet - Labs/Radiology CBC w/diff Date: 03/06/18 (weekly q Mon) CMP Date: 03/06/18 (weekly q Mon) Call or Fax Lab and Imaging Results to: Dr. Nielsen, - Follow Up Care Current Providers and Referrals: Ernie Berumen MD [Primary Care Provider] - Fabián Nielsen MD [Medical Doctor] - 03/14/18 11:30 am
--- NOTE | 2018-03-01 10:45 | ASMTDCNOTE ---
Case Management Discharge Discharge Order Complete? Answers: Yes Patient to Obtain Answers: Independently Medications Transportation Arranged Answers: Family/Friends Faxed Final Orders Answers: Yes Family Notified Answers: No Discharge Comments Notes: Patient discharged home with . Family [facility] RN and [facility] to follow. Orders sent. Follow up with plastic surgeon Dr Alcantar in 5 days. Date Signed: 03/01/2018 10:44 AM Electronically Signed By:Deya Aparicio RN
[2018-03-01 11:19] VITALS: BP 127/73
[2018-03-01] MEDS ORDERED: ceFAZolin 2 GM/DEXTROSE 100 ML IV SCH (11:30)
--- NOTE | 2018-03-16 14:08 | GDS ---
[f rep st] DISCHARGE SUMMARY ADMITTING DIAGNOSIS: Open sternal wound. CLINICAL COURSE: The patient is a 67-year-old white male who had a cardiac valve procedure in December. He developed an infection in his sternal wound site, requiring debridement. [facility] and muscle flap closure. He was taken to the operating room on t he , where the procedure was performed without complication. He was admitted overnight for pain control and observation. He was discharged the next morning in stable condition. He was ambulating, voiding, tolerating p.o., and in good spirits. He was given followup in my office in 1 week. He wa s taught CLEO dressing care. /[id number]/MODL
--- NOTE | 2018-04-20 10:44 | GPROG ---
[f rep st] PROGRESS NOTE The patient was taken to the postanesthesia care unit. A report was provided to the [facility] nurse. He was utilizing oxygen by mask. His vital signs were stable. There were no complaints of nausea, vomiting, or pain. No complications were noted. /[id number]/MODL
== END 2018-03-01 12:52 | disposition home or self-care (01) ==
LOC: F3N 14:12 → F3E 18:35
PROVIDERS: ADMIT Specialist; ATTEND Specialist
DX: T81.4XXA Infection following a procedure, initial encounter (principal); M86.18 Other acute osteomyelitis, other site; B95.7 Other staphylococcus as the cause of diseases classified elsewhere; E11.9 Type 2 diabetes mellitus without complications; E78.5 Hyperlipidemia, unspecified; G47.33 Obstructive sleep apnea (adult) (pediatric); I10 Essential (primary) hypertension; Z95.3 Presence of xenogenic heart valve; Z87.891 Personal history of nicotine dependence
CPT/HCPCS: 14301; 14302; J0171; J0690; J1170; J2250; J2704; J3010; J3370; J1580